=== PATIENT | male | born 1945 | race Caucasian/White ===

== ENCOUNTER → 2016-07-01 | Outpatient (CLI) | payer MEDICARE ==
[~2016-07-01] MED LIST: ALBUTEROL0.09 MG/A2 IH; AMLODIPINE BES2.5 MG PO; ANTIBIOTIC PO; ASPIR-TRIN325 MG PO; ASPIRIN ADULT L81 M1 PO; ASPIRIN81 M1 PO; CIPRO250 MG PO; DALI500T PO; DARVOCET N 1001 TAB PO; DAYPRO600 M1 PO; DILTIAZEM30 MG PO; DULE1ARO1 INH; DUONEB 3 MG/3 ML3 M1 INH; FLEXERIL10 MG PO; LOMOTIL 0.025 M1 TA1 PO; MILLIPRED5 MG PO; MUCINEX600 MG PO; NEBULIZER; NITROGLYCER0.1 MG/H1 TD; PERCOCET 325 MG1 TA2 PO; PERCOCET 325 MG1 TA5 PO; PRED-PAK 455 MG PO; PREDNICOT20 MG PO; PREDNISONE10 MG PO; PREDNISONE20 M1 PO; PREDNISONE5 MG PO; PRILOSEC20 M2 PO; PRINIVIL5 MG PO; ROBAXIN750 MG PO; SIMVASTATIN20 MG PO; TESSALON PERLE100 MG PO; ULTRAM50 MG PO; VENTOLIN 02.5 MG/3 M INH; VIBRAMYCIN100 MG PO; VICODIN ES 7501 TA1 PO; VICODIN ES 7501 TAB PO; XANAX0.5 MG PO; ZANTAC 150150 MG PO; ZOCOR20 MG PO; ZOLOFT50 MG PO; [UNRECOGNIZED DRUG - OTHER]; [UNRECOGNIZED DRUG - REMARK]; [UNRECOGNIZED DRUG - REMARK]
[2016-07-01 11:17] LABS: PTH INTACT 46.8 pg/mL (14.0-72.0); VITAMIN D, 25-HYDROXY 74.7 ng/mL (30-100)
== END | disposition home or self-care (01) ==
LOC: LAB 10:01
PROVIDERS: Internal Medicine
DX: Z13.1 Encounter for screening for diabetes mellitus (principal); Z13.220 Encounter for screening for lipoid disorders; Z00.00 Encounter for general adult medical examination without abnormal findings; Z13.21 Encounter for screening for nutritional disorder; E55.9 Vitamin D deficiency, unspecified

== ENCOUNTER 2016-08-04 16:25 | Emergency (ER) | payer MEDICARE ==
[~2016-08-04] VITALS: Ht 170.1 cm; Wt 52.2 kg
[2016-08-04] MEDS ORDERED: CYMBALTA20 M1 PO (16:45)
[2016-08-04 17:48] LABS: BASO # 0.1 10*3/uL (0.0-0.1); EOS # 0.3 10*3/uL (0.0-0.4); HEMATOCRIT 41.4 % (42.0-52.0); HEMOGLOBIN 14.1 g/dl (14.0-18.0); IG # 0.1 10*3/uL (0.0-0.1); LYMPH # 1.1 10*3/uL (1.3-4.4); LYMPH % 11.8 % (27.0-41.0); MEAN CELL VOLUME 95.4 fl (80.0-94.0); MEAN CORPUSCULAR HGB 32.5 pg (27.0-31.0); MEAN CORPUSCULAR HGB CONC 34.1 g/dl (33.0-37.0); MEAN PLATELET VOLUME 9.5 fl (9.6-12.3); MONO # 0.7 10*3/uL (0.1-1.0); MONO % 7.8 % (3.0-9.0); NEUT # 6.8 10*3/uL (2.3-7.9); NEUT % 75.5 % (47.0-73.0); PLATELET COUNT AUTOMATED 319 10*3/uL (130-400); RED BLOOD COUNT 4.34 10*6/uL (4.50-5.90); RED CELL DISTRI WIDTH 13.3 % (0-14.5)
[2016-08-04 17:56] LABS: PROTHROMBIN TIME 10.2 SECONDS (9.0-12.4)
[2016-08-04 18:03] LABS: ALKALINE PHOSPHATASE 85 U/L (45-117); BILIRUBIN, TOTAL 0.3 mg/dl (0.2-1.0); BUN 14 mg/dl (7-24); CARBON DIOXIDE 29 mmol/L (21-32); CHLORIDE 103 mmol/L (98-107); EST GLOM FILT AFRICAN AMERICAN > 60 ml/min; GLUCOSE 101 mg/dL (65-99); POTASSIUM 4.1 mmol/L (3.5-5.1); SGOT/AST 16 IU/L (3-35); SGPT/ALT 23 U/L (12-78); SODIUM 140 mmol/L (136-145); TOTAL PROTEIN 7.3 gm/dL (6.4-8.2)
[2016-08-04 18:12] LABS: CKMB 0.9 ng/ml (0.5-3.6); CPK 26 U/L (39-308); LDH 102 U/L (87-241); MAGNESIUM 2.2 mg/dL (1.5-2.1)
[2016-08-04 18:14] LABS: TROPONIN I < 0.015 ng/ml (<0.045)
[2016-08-04 21:52] LABS: BILIRUBIN NEGATIVE (NEGATIVE); BLOOD NEGATIVE (NEGATIVE); CLARITY SL CLOUDY (CLEAR); COLOR YELLOW (YELLOW); GLUCOSE NEGATIVE (NEGATIVE); KETONE NEGATIVE (NEGATIVE); LEUKO ESTERASE NEGATIVE (NEGATIVE); NITRITE POSITIVE (NEGATIVE); PROTEIN NEGATIVE (NEGATIVE); UROBILINOGEN 0.2 E.U./dl (0.2-1.0)
[2016-08-04 22:04] LABS: BACTERIA 3+; RBC 0-2 rbc/hpf (0-2); URINE REFLEX COMMENT YES (NO); WBC 0-2 wbc/hpf (0-5)
== END 2016-08-04 22:15 | disposition short-term general hospital (02) ==
LOC: ED 16:25
PROVIDERS: Physician Assistant
DX: I71.4 Abdominal aortic aneurysm, without rupture (principal); J18.1 Lobar pneumonia, unspecified organism; F17.200 Nicotine dependence, unspecified, uncomplicated; Z98.84 Bariatric surgery status; Z79.82 Long term (current) use of aspirin; Z79.899 Other long term (current) drug therapy; Z91.018 Allergy to other foods; Z99.81 Dependence on supplemental oxygen

== ENCOUNTER → 2016-09-16 | Outpatient (CLI) | payer MEDICARE ==
[~2016-09-16] MED LIST changes: +CYMBALTA20 M1 PO; +DILTIAZEM HCL30 MG PO; +PROTONIX40 MG PO
== END | disposition home or self-care (01) ==
LOC: CT 02:25
DX: J43.8 Other emphysema (principal); I71.2 Thoracic aortic aneurysm, without rupture; J84.10 Pulmonary fibrosis, unspecified; R91.1 Solitary pulmonary nodule; Z95.1 Presence of aortocoronary bypass graft

== ENCOUNTER 2016-09-17 13:12 | Inpatient (IN) | payer MEDICARE ==
[~2016-09-17] VITALS: Ht 170.1 cm; Wt 46.5 kg
--- NOTE | ~2016-09-17 | PR ---
[place], [place] PROGRESS NOTE [id number] UNIT #: [id number] ROOM: 522 DOCTOR: RENE COYNE MD,MACY BIRTHDATE: [birth year] DOS: 09/20/2016 SUBJECTIVE: He has been noted comfortable at this time, resting on his bed without distress. Denies symptoms of chest or any abdominal pain, coughing and the other symptoms. The patient has been improving progressively. There were no symptoms of chest pain or any abdominal pain. OBJECTIVE: VITAL SIGNS: For the patient which has been recorded showed the temperature noted as normal, respiratory rate 18, heart rate 74, blood pressure 98/56. Pulse oxygen saturation noted on 3 liters cannula was 100% saturation. HEENT: Showed no acute change. NECK: Supple. CARDIOVASCULAR: S1, S2 is audible. LUNGS: The patient was noted without any wheezing or crackles at the present time. ABDOMEN: Soft and nontender. IMPRESSION: 1. Right lower lobe spiculated pulmonary nodule. Possible consideration malignancy. 2. Resolving acute exacerbation of chronic obstructive pulmonary disease progressively at this time. PLAN OF TREATMENT: No changes in the plan of management at this time. Continue the patient on current therapy as previously. Usual care, other supportive plan of management and treatments. Bronchodilators. MACY LÓPEZ MD CM:PNTRANS [id number] MACY COYNE MD 09/20/162208 interface
--- NOTE | ~2016-09-17 | PR ---
[place], [place] PROGRESS NOTE NAME: RENE CHAVARRIA UNIT #: [id number] ROOM: 522 DOCTOR: CONY LÓPEZ MD BIRTHDATE: [birth year] DOS: SUBJECTIVE: The patient is doing fine. He has severe hard of hearing, since difficult to communicate, but I did try to explain to the patient that a PET scan has been scheduled by the office as an outpatient next week. OBJECTIVE: VITAL SIGNS: Graphic trend shows pressure of 113/60, pulse of 62, respirations 18, temperature 98.1. LUNGS: Clear. HEART: Regular. ABDOMEN: Obese, soft, nontender. EXTREMITIES: Without any edema. ASSESSMENT AND PLAN: 1. Chronic obstructive pulmonary disease with acute exacerbation, improving. 2. Right pulmonary nodule, spiculated. PET scan has been scheduled as an outpatient. 3. Left lower lobe pneumonia, which is also resolving clinically. Repeat chest x-ray will be ordered and the plan is to discharge him to home. CONY LÓPEZ MD CM:PNTRANS [phone] CONY LÓPEZ MD 09/21/16 1711 interface
--- NOTE | ~2016-09-17 | PR ---
[place], [place] PROGRESS NOTE NAME: [id number] UNIT #: [id number] ROOM: 522 DOCTOR: RENE COYNE MD,MACY BIRTHDATE: [birth year] DOS: 09/21/2016 PULMONARY FOLLOWUP SUBJECTIVE: He has been noted comfortable at this time without any acute distress. Denies symptoms of chest pain. Denies any sputum expectoration. OBJECTIVE: VITAL SIGNS: For the patient, which has been recorded showed the temperature noted normal, respiratory rate of 20, heart rate of 72, blood pressure 121/55. HEENT: Showed no new change. NECK: Supple. CARDIOVASCULAR: S1, S2 audible. LUNGS: Noted without any wheezing or crackles at the present time. ABDOMEN: Soft, nontender. IMPRESSION: 1. The patient with nodule in the right lung that has been known recently. The patient requires further assessment. 2. Improving overall respiratory status, the patient's current medical management. 3. Past history of nicotine abuse. PLAN OF TREATMENT: Discharge planning. The patient with oral medications prior to discharge. Continuation in the meantime current plan of management. The patient without any changes. Usual care. Supportive plan of management and therapy. MACY LÓPEZ MD CM:PNTRANS [id number] MACY COYNE MD 09/21/16 1322 interface
--- NOTE | ~2016-09-17 | CON ---
[place], [place] REPORT OF CONSULTATION NAME: RENE CHAVARRIA [facility] #: [id number] UNIT #: [id number] ROOM: 522 DOCTOR: MACY WHITE MD BIRTHDATE: [birth year] DOS: 09/18/2016 PULMONARY CONSULTATION, EVALUATION AND MANAGEMENT CONSULTATION REQUESTED BY: Dr. Shoshana Chaney. REASON FOR CONSULTATION: To assess the patient for pulmonary nodule. HISTORY OF PRESENT ILLNESS: The patient is not a quite good historian. All the history was essentially reviewed for the patient, documentation, history and physical examination and the nursing note which was done on this admission. HISTORY OF PRESENT ILLNESS: A 71-year-old white male who has been known to Dr. Shoshana Chaney, described had admission in [facility] in 08/2016 for assessment of GI bleeding and also noted possibility of lung mass. The patient has been treated with antibiotics and CT scan of the chest to be repeated. He came in to the Emergency Room as the patient noted symptoms of increased shortness of breath, which has been occurring progressively. He was seen by the visiting nursing staff at home. He has been noted with coughing, which was described to be light by the patient. He does have sputum expectoration. Denies any wheezing or chest pain. The patient was noted with tachycardia as well with heart rate 135 beats per minute. He has been admitted to the hospital for further medical management. REVIEW OF SYSTEMS: CONSTITUTIONAL: Review of systems very limited for this patient, unable to exactly elicit the review of systems; however, the patient denies any symptoms of weight loss, complaining of fatigue. Denies fever or chills. EYES: Denies any blurry vision, eye discharge or pain. ENT: Denies any sore throat, hoarseness, or otalgia. GASTROINTESTINAL: Denies any symptoms of abdominal pain, nausea, vomiting. CARDIOVASCULAR: Denies any palpitation, edema of the lower extremities. GENITOURINARY: Denies any dysuria, suprapubic pain, hematuria. MUSCULOSKELETAL: Denies any skin lesions or rashes. Reported symptoms of pain in the neck from chronic degenerative arthritis. Denies any symptoms of syncopal episodes or seizures. PAST MEDICAL HISTORY: 1. Noted with previous admission for pneumonia; details were unknown at [facility]. 2. History of past GI bleeding. 3. Severe COPD, chronic nicotine dependence. 4. Chronic pain, degenerative arthritis and intervertebral disk disease of the spine. 5. Anxiety disorder. 6. Coronary artery disease. 7. History of chronic hypoxic respiratory failure, use of oxygen supplementation 3 liters nasal cannula. 8. History of essential hypertension, coronary artery disease. SURGICAL HISTORY: [place], [place] REPORT OF CONSULTATION NAME: RENE CHAVARRIA UNIT #: [id number] ROOM: 522 DOCTOR: MACY WHITE MD BIRTHDATE: [birth year] 1. Reported as coronary artery bypass grafting. 2. Surgery of the lower back as well and the neck as per patient. 3. Abdominal aortic aneurysm repair. SOCIAL HISTORY: The patient stated that he is , has 4 children. Denies any history of alcohol or any illicit drug use. Tobacco use noted longstanding up to 2 packs of cigarettes per day, started at a younger age. Currently smoking about a pack or less of cigarettes per day. FAMILY HISTORY: Not remembered by the patient. CURRENT MEDICATIONS ADMINISTERED: Noted use of Cymbalta, Daliresp, sertraline, aspirin, simvastatin, Cardizem, Protonix, levalbuterol, doxycycline, Zosyn, Xanax, and other p.r.n. medication administration. DRUG ALLERGIES: Noted with no known drug allergies. PHYSICAL EXAMINATION: GENERAL: A 71-year-old white male noted without any distress, noted somewhat partial hearing loss. Height of 5 feet 7 inches, weight of 102 pounds, BMI is only 16. VITAL SIGNS: Normal temperature, respiratory rate 20-19, heart rate 54-109, blood pressure of ____. Pulse oxygen saturation on 3 L nasal cannula 97% saturation recorded. HEENT: Head was atraumatic. Eyes nonicteric. NECK: Supple. CARDIOVASCULAR SYSTEM: S1, S2 audible. LUNGS: Noted with general reduction in breath sounds. There are no crackles. ABDOMEN: Soft, nontender, flat. EXTREMITIES: No edema, clubbing, cyanosis. CENTRAL NERVOUS SYSTEM: No focal deficits were elicited. Inability to complete remaining central nervous system exam. SKIN: Showed no lesions or rashes. MUSCULOSKELETAL: No obvious deformities. LABORATORY DATA: BMP that was done yesterday was noted essentially normal. Troponin was yesterday noted normal. CBC yesterday, WBC count was normal. Hemoglobin and hematocrit were normal. Platelet count was normal. Chest x-ray of the patient that was done on 09/17/2016 shows severe COPD changes with increased interstitial markings in lower lungs. CT scan of the chest that was done as an outpatient on 09/16/2016 was noted with findings of 2.8 cm peripheral nodular density in posterior subsegment of the right lower lobe. Diffuse emphysema changes noted with findings of scattered interstitial fibrosis with possibly superimposed acute pneumonia cannot be excluded in the lungs bilaterally. IMPRESSION: 1. The patient has been currently admitted to the hospital with suspected acute pneumonia, which has been treated previously as well at [facility] in August 2016 with possible recurrence. [place], [place] REPORT OF CONSULTATION NAME: RENE CHAVARRIA UNIT #: [id number] ROOM: 522 DOCTOR: MACY WHITE MD BIRTHDATE: [birth year] 2. The patient with acute exacerbation of chronic obstructive pulmonary disease was also considered, that was early at this time. 3. History of chronic nicotine dependence. 4. Low body mass index was noted as well. PLAN OF TREATMENT: Continue bronchodilator for medical management of acute exacerbation of COPD. At this time, steroids would not be needed because of absence of significant wheezing. Continue current antibiotics, Zosyn and doxycycline. Monitor sputum culture. The nodule which has been noted in the right lower lobe, which is concerning for malignancy because of spiculated appearance. We would further assess with PET scan and a biopsy should be considered for further assessment for potential malignancy in the right lower lobe. Abstinence from tobacco use was encouraged. Ordered nicotine replacement patches to overcome the nicotine withdrawal. Supportive therapy, plan of management, other care. Further treatment changes would be done based on the progression of the illness. Thanks for allowing me to participate in the care of this patient. MACY LÓPEZ MD CM:CONSTR:REPORT OF CONSULTATION 1137 09/19/16 0600 interface
--- NOTE | ~2016-09-17 | PR ---
[place], [place] PROGRESS NOTE NAME: RENE CHAVARRIA UNIT #: [id number] ROOM: 522 DOCTOR: MACY WHITE MD BIRTHDATE: [birth year] DOS: 09/19/2016 PULMONARY FOLLOWUP SUBJECTIVE: He has been noted with mild cough at this time. Shortness of breath are noted decreased. There were no symptoms of chest pain or any abdominal pain. Denies symptoms of diarrhea. OBJECTIVE: VITAL SIGNS: For the patient, which have been recorded show normal temperature, respiratory rate 18, heart rate 98, blood pressure 103/75. Pulse oxygen saturation of the patient recorded as 97% on 3 liters nasal canula. HEENT: Examination shows no acute change. NECK: Supple. CARDIOVASCULAR: S1, S2 audible. LUNGS: Yuqj-lh-oelomlno decreased breath sounds noted in the lungs bilaterally. No crackles or wheezing heard. ABDOMEN: Soft, nontender. LABORATORY DATA: BMP of the patient on 09/19/2016, glucose 106, remaining BMP was completely normal. Blood culture from showed no bacterial growth as well. Final culture results were pending. BMP of the patient noted as normal. CBC: WBC count 13.9, hemoglobin 13.3, hematocrit 40.3 with a platelet count of 266,000. IMPRESSION: 1. The patient with acute exacerbation of chronic obstructive pulmonary disease, acute tracheobronchitis. 2. Pulmonary nodule for the patient was noted in the right lung. The patient would require further assessment to rule out malignancy. PLAN OF TREATMENT: Continue current plan of management. The patient is doing very well with current treatment. Supportive care. Other therapy, plan of management. [place], [place] PROGRESS NOTE NAME: RENE CHAVARRIA UNIT #: [id number] ROOM: 522 DOCTOR: MACY WHITE MD BIRTHDATE: [birth year] MACY LÓPEZ MD CM:PNTRANS [id number] MACY COYNE MD 09/20/16 0107 interface
--- NOTE | ~2016-09-17 | WRIGHTHP ---
[place], [place] PATIENT HISTORY AND PHYSICAL EXAM NAME: RENE CHAVARRIA [facility] #: [id number] UNIT #: [id number] ROOM: 522 DOCTOR: CONY LÓPEZ MD BIRTHDATE: [birth year] DOS: 09/17/2016 HISTORY OF PRESENT ILLNESS: This patient is 71 years old, very well known to us. He was admitted August 2016 at [facility] following GI bleed and an evaluation showed that there was possibility of lung mass. Thus, he was treated with antibiotics and was advised to have a repeat CAT scan. This was performed on September 16. It showed reappearance of a small pneumonia on the left side. The patient was getting breathing treatments at home and on September 17, the visiting nurses noted that he was quite short of breath and was tachycardic with a heart rate of about 135, so I advised the patient be sent out to the Emergency Room where he was evaluated and was admitted because of the new pneumonia on the left lower lobe, so the patient this morning complains of minimal shortness of breath, but much improved since yesterday, does not have any palpitations or chest pain, very difficult to communicate with the patient because he has difficulty hearing and there is nobody else accompanying him this morning. PAST MEDICAL HISTORY: Significant for again as recorded earlier recent hospitalization for possible pneumonia in August 04 at [facility]; 1. Colonoscopy with polypectomy. 2. Diverticulosis. 3. Severe COPD with continued nicotine abuse. 4. Chronic low back pain. 5. Generalized anxiety disorder. 6. Coronary artery disease, status post CABG. MEDICATIONS: Xanax 0.5 q.i.d., aspirin 81, diltiazem 30 b.i.d., duloxetine 20 daily, Percocet 5 q.i.d., Protonix 40 b.i.d., Daliresp 500 mcg daily, Zoloft 50 daily and simvastatin 20 daily. SOCIAL HISTORY: Smoker of about 1 to 1-1/2 packs of cigarettes daily for the last 60 years. Denies using any alcohol. PHYSICAL EXAMINATION: GENERAL: He is awake, alert and oriented and again severe hard of hearing. VITAL SIGNS: Graphic trend shows a pressure of 92/55, pulse of 90, respirations 20 and temperature 97.3, chronically hypotensive as even as an outpatient. HEENT: Unremarkable. LUNGS: Diminished breath sounds. HEART: Regular. ABDOMEN: Soft. EXTREMITIES: Without any edema. ASSESSMENT AND PLAN: 1. A CT done on the September 16, shows a left lower lobe pneumonia as well as chronic right lower lobe pneumonia and a spiculated mass in the right lower lung field, which will need to be evaluated with a PET scan as an outpatient, which has already been scheduled by the office. We will ask Dr. Garcia to see him since he may benefit from a bronchoscopy. 2. Coronary artery disease with history of coronary artery bypass grafting without any complaints of chest pain. His tachycardia most likely was from the [place], [place] PATIENT HISTORY AND PHYSICAL EXAM NAME: [facility]: [id number] UNIT #: [id number] ROOM: 522 DOCTOR: CONY LÓPEZ MD BIRTHDATE: [birth year] breathing treatments. He is currently on Xopenex. 3. Generalized anxiety disorder under control with medications. CONY LÓPEZ MD CM:HISPHYS:PATIENT HISTORY AND PHYSICAL EXAMINATION [phone] CONY LÓPEZ MD 09/18/16 1110 interface
--- NOTE | ~2016-09-17 | DS ---
[place], [place] DISCHARGE SUMMARY NAME: RENE CHAVARRIA UNIT #: [id number] ROOM: 522 DOCTOR: CONY LÓPEZ MD BIRTHDATE: [birth year] DOS: 09/22/2016 ADMITTING DIAGNOSES: 1. Suspected mass right lower lobe for PET scan as an outpatient tomorrow at [facility]. 2. Acute tracheobronchitis. 3. Tachycardia multifocal from the underlying chronic obstructive pulmonary disease. 4. Protein-calorie malnutrition. 5. Coronary artery disease, status post coronary artery bypass graft. 6. Tobacco dependence. 7. Left lower lobe pneumonia MEDICATIONS: Same as on admission. In addition, tapering dose of prednisone and Ceftin 250 b.i.d. was given for 7 days. HOSPITAL COURSE: The patient is very well known to us. He was admitted to the hospital with left lower lobe pneumonia, which was seen on a chest x-ray. After admission, the patient was placed on steroids, antibiotics, breathing treatments. The patient is improved and is not having any new problems. A tachycardia, which was noted before admission, has improved. He does not have any bronchospasm. He unfortunately continues to smoke rather heavily. Recent CT scans did show the spiculated mass which is actually smaller in size, but still present. This will need to be further evaluated in the office. I have already scheduled the patient to have the PET scan tomorrow at [facility]. Instructions and order was given to the patient. CONY LÓPEZ MD CM:JEM [id number] CONY LÓPEZ MD 09/22/16 1107 interface
--- NOTE | ~2016-09-17 | PR ---
[place], [place] PROGRESS NOTE NAME: RENE CHAVARRIA [facility] #: [id number] UNIT #: [id number] ROOM: 522 DOCTOR: SUNITA DUARTE MD BIRTHDATE: [birth year] DOS: 09/20/2016 SUBJECTIVE: The patient still with some diarrhea. Stool negative for C. diff. OBJECTIVE: VITAL SIGNS: Blood pressure 102/64, heart rate of 85 beats per minute, breathing 18 times per minute, temperature 98.6 degrees Fahrenheit. GENERAL APPEARANCE: The patient is alert and oriented x 3, in no visible distress. HEENT AND NECK: Exam within normal limits. CARDIOVASCULAR SYSTEM: Heart rate is regular in rate and rhythm. S1 and S2 normally audible. LUNGS: Clear to auscultation. ABDOMEN: Soft, nontender. No obvious organomegaly. Bowel sounds are present. EXTREMITIES: Without significant cyanosis or edema. IMPRESSION: 1. Left lower lobe pneumonia, chronic right lower lobe infiltrate and spiculated mass in the right lower lung for which strategic intelligence officer, Dr. aGrcia will be following him up with a PET scan as an outpatient. For now, the patient is on antibiotics, bronchodilators and oxygen, and is improving clinically. 2. Coronary artery disease of huslia vessels and coronary artery bypass grafts without any chest pains. 3. Chronic diarrhea. Stool for C. diff negative so far. 4. Generalized anxiety disorder treated with Xanax as needed. SUNITA DUARTE MD CM:PNTRANS 1655 SUNITA DUARTE MD 09/20/16 2303 interface
--- NOTE | ~2016-09-17 | PR ---
[place], [place] PROGRESS NOTE [id number] UNIT #: [id number] ROOM: 522 DOCTOR: GERALD ADAIR,SUNITA Alberto BIRTHDATE: [birth year] DOS: 09/19/2016 SUBJECTIVE: The patient says his breathing continues to improve, he is wearing oxygen. PHYSICAL EXAMINATION: VITAL SIGNS: Blood pressure 103/75, heart rate of 98 beats per minute, breathing 18 times per minute, temperature 98.4 degrees Fahrenheit. GENERAL APPEARANCE: Exam except for generalized weakness and the patient is wearing oxygen. LUNGS: With decreased breath sounds all over. IMPRESSION: 1. The patient with left lower lobe pneumonia with chronic right lower lobe infiltrate and spiculated mass in the right lower lung for which Dr. Garcia will work him up with a PET scan as an outpatient. So far, the patient is being treated with antibiotics, bronchodilators and oxygen and improving. 2. Coronary artery disease of the jena vessel with coronary artery bypass grafts without any angina symptoms or chest pains. 3. Generalized anxiety disorder, controlled with treatment. 4. Some diarrhea, which is chronic ____ check stool for Clostridium difficile toxin. 3. Generalized anxiety disorder for which the patient takes Xanax as needed. SUNITA DUARTE MD CM:PNTRANS [phone] SUNITA DUARTE MD 09/20/16 0113 interface
--- NOTE | ~2016-09-17 | PR ---
[place], [place] PROGRESS NOTE NAME: RENE CHAVARRIA UNIT #: [id number] ROOM: 522 DOCTOR: CONY LÓPEZ MD BIRTHDATE: [birth year] DOS: 09/22/2016 SUBJECTIVE: The patient is doing fine without any complaints. Denies any chest pains, palpitations or shortness of breath. PHYSICAL EXAMINATION: GENERAL: He is awake and alert and oriented. LUNGS: Diminished breath sounds, clear. HEART: Regular. ABDOMEN: Soft. EXTREMITIES: Without any edema. ASSESSMENT AND PLAN: 1. Acute exacerbation of chronic obstructive pulmonary disease, stable and improved. 2. Acute tracheobronchitis. His cough and bronchospasm is much better. Heart rate is under control. Plan is to discharge him to home. He has been informed about a PET scan that is to be done at [facility] tomorrow. The patient was given instructions as well as the order. CONY LÓPEZ MD CM:PNTRANS [id number] CONY LÓPEZ MD 09/22/16 1103 interface
[~2016-09-17 13:12] MED LIST changes: -DILTIAZEM HCL30 MG PO; -PROTONIX40 MG PO
[2016-09-17 13:24] VITALS: BP 104/72
[2016-09-17] MEDS ORDERED: DILTIAZEM HCL30 MG PO (13:25)
[2016-09-17 13:39] LABS: BASO # 0.1 10*3/uL (0.0-0.1); BASO % 1.1 % (0.0-1.0); EOS # 0.4 10*3/uL (0.0-0.4); EOS % 5.2 % (1.0-4.0); HEMATOCRIT 45.4 % (42.0-52.0); HEMOGLOBIN 15.2 g/dl (14.0-18.0); LYMPH # 1.1 10*3/uL (1.3-4.4); LYMPH % 13.5 % (27.0-41.0); MEAN CELL VOLUME 95.4 fl (80.0-94.0); MEAN CORPUSCULAR HGB 31.9 pg (27.0-31.0); MEAN CORPUSCULAR HGB CONC 33.5 g/dl (33.0-37.0); MEAN PLATELET VOLUME 9.6 fl (9.6-12.3); MONO # 0.7 10*3/uL (0.1-1.0); MONO % 8.7 % (3.0-9.0); NEUT # 5.9 10*3/uL (2.3-7.9); PLATELET COUNT AUTOMATED 263 10*3/uL (130-400); RED BLOOD COUNT 4.76 10*6/uL (4.50-5.90); RED CELL DISTRI WIDTH 13.7 % (0-14.5); WHITE BLOOD COUNT 8.3 10*3/uL (4.8-10.8)
[2016-09-17 13:57] LABS: BUN 10 mg/dl (7-24); CARBON DIOXIDE 29 mmol/L (21-32); CHLORIDE 103 mmol/L (98-107); EST GLOM FILT AFRICAN AMERICAN > 60 ml/min; GLUCOSE 109 mg/dL (65-99); MAGNESIUM 2.2 mg/dL (1.5-2.1); POTASSIUM 4.3 mmol/L (3.5-5.1); SODIUM 139 mmol/L (136-145)
[2016-09-17 13:59] LABS: TROPONIN I < 0.015 ng/ml (<0.045)
[2016-09-17 14:30] VITALS: BP 99/72
[2016-09-17 15:37] VITALS: BP 103/73
[2016-09-17 16:00] VITALS: BP 101/69
[2016-09-17] MEDS ORDERED: PROTONIX40 MG PO (16:28)
[2016-09-17 20:00] VITALS: BP 98/64
[2016-09-17 20:33] VITALS: BP 90/76
[2016-09-18] VITALS: BP 100/54
[2016-09-18 08:00] VITALS: BP 92/55
[2016-09-18 12:00] VITALS: BP 103/71
[2016-09-18 16:00] VITALS: BP 91/52
[2016-09-18 21:18] VITALS: BP 126/77
[2016-09-19] VITALS: BP 90/54
[2016-09-19 07:16] LABS: BASO # 0.1 10*3/uL (0.0-0.1); BASO % 0.6 % (0.0-1.0); EOS # 0.4 10*3/uL (0.0-0.4); EOS % 2.7 % (1.0-4.0); HEMATOCRIT 40.3 % (42.0-52.0); HEMOGLOBIN 13.3 g/dl (14.0-18.0); IG # 0.1 10*3/uL (0.0-0.1); LYMPH # 1.3 10*3/uL (1.3-4.4); LYMPH % 9.1 % (27.0-41.0); MEAN CELL VOLUME 97.1 fl (80.0-94.0); MONO # 1.2 10*3/uL (0.1-1.0); MONO % 8.5 % (3.0-9.0); NEUT # 10.9 10*3/uL (2.3-7.9); NEUT % 78.6 % (47.0-73.0); PLATELET COUNT AUTOMATED 266 10*3/uL (130-400); RED BLOOD COUNT 4.15 10*6/uL (4.50-5.90); RED CELL DISTRI WIDTH 14.1 % (0-14.5); WHITE BLOOD COUNT 13.9 10*3/uL (4.8-10.8)
[2016-09-19 07:45] LABS: BUN 8 mg/dl (7-24); CARBON DIOXIDE 27 mmol/L (21-32); CHLORIDE 106 mmol/L (98-107); EST GLOM FILT AFRICAN AMERICAN > 60 ml/min; GLUCOSE 106 mg/dL (65-99); POTASSIUM 3.8 mmol/L (3.5-5.1); SODIUM 144 mmol/L (136-145)
[2016-09-19 08:00] VITALS: BP 99/66
[2016-09-19 12:00] VITALS: BP 103/75
[2016-09-19 16:00] VITALS: BP 107/69
[2016-09-19 20:00] VITALS: BP 99/51
[2016-09-20] VITALS: BP 97/85
[2016-09-20 08:00] VITALS: BP 98/56
[2016-09-20 12:00] VITALS: BP 102/64
[2016-09-20 16:00] VITALS: BP 96/65
[2016-09-20 20:00] VITALS: BP 97/63
[2016-09-21] VITALS: BP 113/60
[2016-09-21 08:00] VITALS: BP 121/55
[2016-09-21 12:00] VITALS: BP 95/83
[2016-09-21 16:00] VITALS: BP 100/60
[2016-09-21 20:00] VITALS: BP 107/70
[2016-09-22] VITALS: BP 107/67
[2016-09-22 06:12] LABS: BASO # 0.1 10*3/uL (0.0-0.1); BASO % 1.1 % (0.0-1.0); EOS # 0.6 10*3/uL (0.0-0.4); EOS % 6.4 % (1.0-4.0); HEMATOCRIT 39.2 % (42.0-52.0); HEMOGLOBIN 13.3 g/dl (14.0-18.0); LYMPH # 1.6 10*3/uL (1.3-4.4); LYMPH % 16.9 % (27.0-41.0); MEAN CELL VOLUME 95.6 fl (80.0-94.0); MEAN CORPUSCULAR HGB 32.4 pg (27.0-31.0); MEAN CORPUSCULAR HGB CONC 33.9 g/dl (33.0-37.0); MEAN PLATELET VOLUME 9.6 fl (9.6-12.3); MONO # 0.7 10*3/uL (0.1-1.0); MONO % 7.7 % (3.0-9.0); NEUT # 6.3 10*3/uL (2.3-7.9); NEUT % 67.7 % (47.0-73.0); PLATELET COUNT AUTOMATED 270 10*3/uL (130-400); RED CELL DISTRI WIDTH 13.5 % (0-14.5); WHITE BLOOD COUNT 9.4 10*3/uL (4.8-10.8)
[2016-09-22 06:48] LABS: CHLORIDE 108 mmol/L (98-107); POTASSIUM 3.8 mmol/L (3.5-5.1); SODIUM 145 mmol/L (136-145)
[2016-09-22 07:50] LABS: BUN 9 mg/dl (7-24); CARBON DIOXIDE 27 mmol/L (21-32); EST GLOM FILT AFRICAN AMERICAN > 60 ml/min; GLUCOSE 115 mg/dL (65-99)
[2016-09-22 08:00] VITALS: BP 95/50
== END 2016-09-22 08:40 | disposition home health service (06) | DRG 190 ==
LOC: ED 13:12 → 5E 15:05 → EDHOLD 15:05 → 5E 15:10
PROVIDERS: Emergency Medicine; Internal Medicine
DX: J44.0 Chronic obstructive pulmonary disease with (acute) lower respiratory infection (principal); J18.1 Lobar pneumonia, unspecified organism; J96.11 Chronic respiratory failure with hypoxia; E46 Unspecified protein-calorie malnutrition; Z99.81 Dependence on supplemental oxygen; Z68.1 Body mass index [BMI] 19.9 or less, adult; J44.1 Chronic obstructive pulmonary disease with (acute) exacerbation; I25.10 Atherosclerotic heart disease of native coronary artery without angina pectoris; F41.1 Generalized anxiety disorder; I71.4 Abdominal aortic aneurysm, without rupture; G89.29 Other chronic pain; M54.5 Low back pain; M47.9 Spondylosis, unspecified; K52.9 Noninfective gastroenteritis and colitis, unspecified; J20.9 Acute bronchitis, unspecified; F17.290 Nicotine dependence, other tobacco product, uncomplicated; R91.1 Solitary pulmonary nodule; Z91.018 Allergy to other foods; Z79.82 Long term (current) use of aspirin; Z79.899 Other long term (current) drug therapy; Z87.440 Personal history of urinary (tract) infections; Z95.1 Presence of aortocoronary bypass graft; Z88.5 Allergy status to narcotic agent

== ENCOUNTER 2016-09-28 22:00 | Emergency (ER) | payer MEDICARE ==
[~2016-09-28] VITALS: Ht 170.1 cm; Wt 59.0 kg
[~2016-09-28 22:00] MED LIST changes: +DILTIAZEM HCL30 MG PO; +PROTONIX40 MG PO
[2016-09-28 22:34] LABS: BASO # 0.1 10*3/uL (0.0-0.1); BASO % 0.8 % (0.0-1.0); EOS # 0.7 10*3/uL (0.0-0.4); EOS % 4.1 % (1.0-4.0); HEMATOCRIT 48.1 % (42.0-52.0); HEMOGLOBIN 15.9 g/dl (14.0-18.0); IG # 0.1 10*3/uL (0.0-0.1); LYMPH # 2.5 10*3/uL (1.3-4.4); LYMPH % 13.8 % (27.0-41.0); MEAN CELL VOLUME 98.6 fl (80.0-94.0); MEAN CORPUSCULAR HGB 32.6 pg (27.0-31.0); MEAN CORPUSCULAR HGB CONC 33.1 g/dl (33.0-37.0); MEAN PLATELET VOLUME 10.2 fl (9.6-12.3); MONO # 1.1 10*3/uL (0.1-1.0); MONO % 6.2 % (3.0-9.0); NEUT # 13.3 10*3/uL (2.3-7.9); NEUT % 74.4 % (47.0-73.0); PLATELET COUNT AUTOMATED 339 10*3/uL (130-400); RED BLOOD COUNT 4.88 10*6/uL (4.50-5.90); RED CELL DISTRI WIDTH 14.1 % (0-14.5); WHITE BLOOD COUNT 17.9 10*3/uL (4.8-10.8)
[2016-09-28 22:52] LABS: BUN 15 mg/dl (7-24); CARBON DIOXIDE 29 mmol/L (21-32); CHLORIDE 105 mmol/L (98-107); EST GLOM FILT AFRICAN AMERICAN > 60 ml/min; GLUCOSE 112 mg/dL (65-99); POTASSIUM 3.9 mmol/L (3.5-5.1); SODIUM 144 mmol/L (136-145)
[2016-09-28 22:53] LABS: TROPONIN I < 0.015 ng/ml (<0.045)
[2016-09-28 22:54] LABS: OXYHEMOGLOBIN 54.9 % (85.0-98.0); TOTAL HGB 15.2 G/DL (13.5-18.0)
[2016-09-28 22:56] LABS: ABG BASE EXCESS -0.9 mmol/L (-2.0-2.0); ABG CO2 CONTENT 26.3 mmol/L (23-27); ABG HCO3 24.9 mmol/l (22-26); ABG TEMPERATURE 97.9 F (98.0-99.0); ARTERIAL BLOOD GAS PH 7.345 (7.35-7.45)
== END 2016-09-29 00:32 | disposition short-term general hospital (02) ==
LOC: ED 22:00
PROVIDERS: Emergency Medicine Emergency Medical Services
DX: T20.20XA Burn of second degree of head, face, and neck, unspecified site, initial encounter (principal); J96.10 Chronic respiratory failure, unspecified whether with hypoxia or hypercapnia; J44.1 Chronic obstructive pulmonary disease with (acute) exacerbation; F17.210 Nicotine dependence, cigarettes, uncomplicated; Z79.82 Long term (current) use of aspirin; Z79.899 Other long term (current) drug therapy; Z91.018 Allergy to other foods; Z99.81 Dependence on supplemental oxygen; X08.8XXA Exposure to other specified smoke, fire and flames, initial encounter; Y93.G2 Activity, grilling and smoking food; Y92.009 Unspecified place in unspecified non-institutional (private) residence as the place of occurrence of the external cause; Y99.9 Unspecified external cause status

== ENCOUNTER 2017-08-18 13:08 | Inpatient (IN) | payer MEDICARE ==
[2017-08-18] VITALS (7 sets, daily range): BP systolic 102–120; BP diastolic 70–87
[~2017-08-18] VITALS: Ht 167.6 cm; Wt 42.4 kg
--- NOTE | ~2017-08-18 | WRIGHTHP ---
[place], [place] PATIENT HISTORY AND PHYSICAL EXAM NAME: RENE CHAVARRIA [facility] #: [id number] UNIT #: [id number] ROOM: [facility] DOCTOR: CONY LÓPEZ MD BIRTHDATE: [birth year] DOS: 08/18/2017 HISTORY OF PRESENT ILLNESS: This patient is very well known to us, 72-year-old, comes to the office for routine appointment. The patient complained and son state that he had multiple episodes of diarrhea, also was hypotensive with a blood pressure systolic in the 60s, so he was brought to the emergency room where he was evaluated and was found to be quite short of breath by the time he arrived at the emergency room. He denies having any fever, any chills, any chest pains or palpitations. It is very difficult to communicate with him because he is severe hard of hearing and does not have his hearing aid with him. PAST MEDICAL HISTORY: 1. End-stage COPD, oxygen dependent. 2. Generalized anxiety disorder. 3. Chronic low back pain. 4. Protein calorie malnutrition. 5. Right lower lobe mass which was ruled out as a malignancy and is mostly resolved now. 6. Coronary artery disease, status post CABG. 7. Moderate cigarette smoker. MEDICATIONS: He is on currently are Breo Ellipta 1 inhalation daily, DuoNeb q. 4, Flonase nasal spray, Xanax 0.5 q.i.d., amitriptyline 10 at bedtime, aspirin 81 daily, diltiazem 30 b.i.d., duloxetine 20 daily, Megace 40 b.i.d., Percocet 5 q.i.d. p.r.n., Daliresp 500 mcg daily, sulfasalazine 500 t.i.d., tamsulosin 0.4 daily, nitroglycerin 0.2 mg. SOCIAL HISTORY: Smokes about a half to 1 pack of cigarettes a day. Denies using any alcohol on exam. He lives at home with his . PHYSICAL EXAMINATION: GENERAL: He is awake and alert and oriented in moderate respiratory distress. VITAL SIGNS: Blood pressure is 110/48, pulse of 89, respirations 22, temperature 98.7. LUNGS: Diminished breath sounds, scattered wheezes. HEART: Regular. ABDOMEN: Soft, scaphoid. EXTREMITIES: Without any edema. LABORATORY DATA: Chest CT scan shows severe COPD, atelectasis in lung bases, previous right lower lobe opacity has almost resolved, 4.8 AAA with history of stent. ASSESSMENT AND PLAN: 1. Acute exacerbation of end-stage chronic obstructive pulmonary disease, IV steroids and antibiotics have been added. 2. Atelectasis, left lower lobe versus pneumonia. IV antibiotics have been added. Dr. Garcia has been consulted. 3. Protein-calorie malnutrition with hypotension. Blood pressures have improved. Social service has been consulted for possible placement to [place], [place] PATIENT HISTORY AND PHYSICAL EXAM NAME: DEONRENE Dietz UNIT #: [id number] ROOM: [facility] DOCTOR: CONY LÓPEZ MD BIRTHDATE: [birth year] rehabilitation. 4. Adult failure to thrive. CONY LÓPEZ MD CM:HISPHYS:PATIENT HISTORY AND PHYSICAL EXAMINATION 1 3 CONY LÓPEZ MD 08/19/17 0903 interface
--- NOTE | ~2017-08-18 | PR ---
[place], [place] PROGRESS NOTE NAME: RENE CHAVARRIA UNIT #: [id number] ROOM: [facility] DOCTOR: RENE COYNE MD,MACY BIRTHDATE: [birth year] DOS: 08/21/2017 PULMONARY PROGRESS NOTE SUBJECTIVE: He has been noted comfortable at this time, resting on the chair. His spouse and one of the son were present in the room with the patient this morning. He had not been noted any symptoms of acute chest pain. There was no hemoptysis. Oral intake for the patient was gradually improving, but still noted limited. There were symptoms of nausea, vomiting, diarrhea, hemoptysis reported. The patient denies symptoms of dizziness, headache, diplopia. Denies symptoms of dysuria, suprapubic pain or any acute joint pain. Remaining systems were reviewed. They were noted all negative. OBJECTIVE: VITAL SIGNS: For the patient this morning; normal temperature, respiratory rate 22, heart rate of 83, blood pressure 115/83. Intake of 3200 mL, output 1275 mL. Pulse oxygen saturation 3 L nasal cannula 94% saturation. HEENT: Head was atraumatic. Eyes nonicterus. NECK: Supple. CARDIOVASCULAR: S1, S2 is audible. LUNGS: The patient was noted without any crackles. Generally diminished breath sounds noted in the lungs bilaterally. ABDOMEN: Soft, nontender. EXTREMITIES: Without any acute edema. VISIBLE SKIN: No lesions or rashes. CENTRAL NERVOUS SYSTEM: General weakness and fatigue. No focal deficit. MUSCULOSKELETAL: Without any acute deformities. LABORATORY DATA: Blood culture, which was done for this patient was noted negative. Prealbumin level noted as 16 previously. IMPRESSION: 1. The patient who has been currently noted with gradual resolution of acute exacerbation of chronic obstructive pulmonary disease, history of chronic severe hypoxic respiratory failure and other medical illnesses. 2. The patient with decreased oral intake. 3. Suspected acute pneumonia. The patient was treated with the antibiotics. PLAN OF TREATMENT: Continuation of the bronchodilators, oxygen supplementation, nutritional support for this patient, other therapy, plan of management. Continue current dose of Solu-Medrol and the antibiotics. Usual care with other supportive plan of therapy with additional changes to be made based on progression of the illnesses. [place], [place] PROGRESS NOTE NAME: RENE CHAVARRIA UNIT #: [id number] ROOM: [facility] DOCTOR: MACY WHITE MD BIRTHDATE: [birth year] MACY LÓPEZ MD CM:PNTRANS [id number] MACY COYNE MD 08/22/17 0048 interface
--- NOTE | ~2017-08-18 | PR ---
[place], [place] PROGRESS NOTE NAME: [id number] UNIT #: [id number] ROOM: [facility] DOCTOR: RENE COYNE MD,MACY BIRTHDATE: [birth year] DOS: 08/20/2017 PULMONARY PROGRESS NOTE SUBJECTIVE: He has been noted comfortable at this time without any acute distress, resting on the chair. Noted awake and alert. Denies symptoms of chest pain or hemoptysis. Shortness of breath has been noted decreased. Mild tachycardia was noted, heart rate of 116 beats per minute. PHYSICAL EXAMINATION: VITAL SIGNS: The temperature noted normal, respiratory rate of 20, heart rate of 116, and blood pressure ____. The pulse oxygen saturation on 3 liters is 93% saturation recorded. HEENT: On examination, head was atraumatic. Eyes nonicterus. NECK: Supple. CARDIOVASCULAR: S1, S2 audible. LUNGS: Noted without any crackles. Moderate decreased breath sounds in the lungs were noted bilaterally. Scattered expiratory wheezing. ABDOMEN: Soft, nontender. Bowel sounds present. EXTREMITIES: Without any acute edema. IMPRESSION: The patient with an acute pneumonia in right lower lobe was noted with history of nicotine abuse, progressive cachexia, and chronic hypoxic respiratory failure. PLAN OF MANAGEMENT: No change in the plan of management. Improved the nutritional status, prealbumin noted as 16. Physical therapy and occupation therapy. The patient was also ordered the consultation for the long-term acute care facility. MACY LÓPEZ MD CM:PNTRANS [phone] MACY COYNE MD 08/21/17 0110 interface
--- NOTE | ~2017-08-18 | EKG ---
[place], [place] ELECTROCARDIOGRAM REPORT NAME: RENE CHAVARRIA UNIT #: [id number] ROOM: [facility] DOCTOR: RENE COYNE MD,MACY BIRTHDATE: [birth year] DOS: 08/18/2017 ELECTROCARDIOGRAM DATE AND TIME OF PROCEDURE: 08/18/2017 at 02:11 p.m. FINDINGS: Sinus tachycardia noted with heart rate of 114 beats per minute. Low voltage EKG for the patient is considered. MACY LÓPEZ MD CM:EKGRPT:ELECTROCARDIOGRAM REPORT [id number] MACY COYNE MD
--- NOTE | ~2017-08-18 | PR ---
[place], [place] PROGRESS NOTE NAME: RENE CHAVARRIA UNIT #: [id number] ROOM: [facility] DOCTOR: SUNITA DUARTE MD BIRTHDATE: [birth year] DOS: 08/20/2017 SUBJECTIVE: The patient with shortness of breath with some improvement. OBJECTIVE: VITAL SIGNS: Blood pressure 112/67, heart rate 107 beats per minute, breathing 38 times per minute, afebrile. GENERAL APPEARANCE: The patient is alert and oriented x 3, in no visible distress, except for generalized weakness. HEENT AND NECK: Exam within normal limits. CARDIOVASCULAR SYSTEM: Heart rate is regular in rate and rhythm. S1 and S2 normally audible. LUNGS: Decreased breath sounds all over. The patient is wearing oxygen. ABDOMEN: Soft, nontender. No obvious organomegaly. Bowel sounds are present. EXTREMITIES: Without significant cyanosis or edema. IMPRESSION: 1. End-stage centrilobular emphysema with acute over chronic respiratory failure. The patient is not a good candidate for going home or to a detention facility at this time because of his tachycardia and hypoxemia, barely maintaining 90% pulse ox and breathing 38 times per minute. The patient is still on the ICU. I did have a discussion about his code status with the patient and he said he will discuss it with his and then decide. I have put in a consult for LTAC facility because he needs higher level of care than detention facility at this time and hopefully the patient will be discharged there tomorrow. 2. Left lower lobe pneumonia, treated with IV antibiotics, which will be continued. 3. Mild protein calorie malnutrition. The patient is followed by Dietary. 4. Coronary artery disease of the [place] vessels, without chest pains. 5. Nicotine smoke dependence. The patient encouraged to stop and help was offered. 6. Generalized anxiety disorder, being followed closely and treated as appropriate. 7. Advanced adult failure to thrive and suboptimal long-term prognosis, especially because of his end-stage lung disease. [place], [place] PROGRESS NOTE NAME: RENE CHAVARRIA UNIT #: [id number] ROOM: [facility] DOCTOR: SUNITA DUARTE MD BIRTHDATE: [birth year] SUNITA DUARTE MD CM:IMANI [phone] SUNITA DUARTE MD 08/20/17 1846 interface
--- NOTE | ~2017-08-18 | CON ---
[place], [place] REPORT OF CONSULTATION NAME: RENE CHAVARRIA [facility] #: [id number] UNIT #: [id number] ROOM: [facility] DOCTOR: MACY WHITE MD BIRTHDATE: [birth year] DOS: 08/19/2017 PULMONARY CONSULTATION, EVALUATION AND MANAGEMENT CONSULTATION REQUESTED BY: Dr. Shoshana Chaney. REASON FOR CONSULTATION: For assessment of possibility of acute pneumonia versus atelectasis, noted on CT scan of the chest. HISTORY OF PRESENT ILLNESS: This 72-year-old white male, who had been sent to the Emergency Room from the office of Dr. Shoshana Chaney, as the patient noted with multiple episodes of diarrhea for further assessment. The patient later started complaining of symptoms of shortness of breath. He was assessed in the Emergency Room, admitted to the hospital for possibility of acute pneumonia and assessment of other medical illnesses. He has been admitted to Intensive Care Unit. He has been attempted with several arterial blood gases, which was noted successful. The patient refused to have further testing done after that. He has been currently noted sitting on his bed, this morning still complained of some shortness of breath. Does not have any symptoms of cough or wheezing. The communication is very limited because of his hard of hearing. He denies any symptoms of hemoptysis. REVIEW OF SYSTEMS: CONSTITUTIONAL: Fatigue and tiredness reported without symptoms of fever or chills. EYES: Denies any burning, redness, or tenderness. EARS, NOSE, AND THROAT SYMPTOMS: Denies sore throat, hoarseness, or otalgia. Chronic hearing loss. CARDIOVASCULAR: Denies anginal pain. GASTROINTESTINAL: Symptom of dysphagia, abnormal weight loss, hematemesis or melena reported. GENITOURINARY: Denies dysuria, suprapubic pain, or hematuria. MUSCULOSKELETAL: No acute deformities. SKIN: Noted without any lesions or rashes. CENTRAL NERVOUS SYSTEM: Denies dizziness, headache, diplopia, or syncopal episodes. Remaining systems reviewed. They were noted all negative. PAST MEDICAL HISTORY: 1. End-stage chronic obstructive pulmonary disease. 2. Chronic hypoxic respiratory failure, use of oxygen 3 liters cannula at home. 3. Degenerative arthritis. 4. Past history of gastrointestinal bleeding. 5. History of previous pneumonia. 6. Essential hypertension. 7. Coronary artery disease. 8. Generalized anxiety disorder. 9. Chronic hearing loss. PAST SURGICAL HISTORY: 1. Coronary artery bypass grafting. [place], [place] REPORT OF CONSULTATION NAME: RENE CHAVARRIA UNIT #: [id number] ROOM: [facility] DOCTOR: RENE COYNE MD,MACY BIRTHDATE: [birth year] 2. Lower back surgery, diskectomy. 3. Abdominal aortic aneurysm repair. SOCIAL HISTORY: The patient is , has 4 children , lived at home. Previously has been noted tobacco use, started at younger age 4-pack of cigarettes per day, not sure if he is smoking cigarettes actively at this time or not. FAMILY HISTORY: Unknown. MEDICATIONS: Current medication administration noted use of Flonase, nitropatch application to skin, Flomax, ____, aspirin, omeprazole, Cymbalta, Cardizem, amitriptyline, IV Solu-Medrol 30 mg q.8h, DuoNeb q.4 hours, Levaquin, sulfasalazine and other p.r.n. medications administration. DRUG ALLERGIES: Noted with no known drug allergies. PHYSICAL EXAMINATION: GENERAL: This is a 72-year-old white male currently noted to be awake and alert without acute distress. Height of 5 feet 6 inches, weight of 93 pounds, BMI only 15. VITAL SIGNS: The patient showed normal temperature, respiratory rate 22-26, heart rate of 96-120, blood pressure 110/48-107/75. The pulse oxygen saturation 3 liters cannula was 96% saturation. HEENT: Head was atraumatic. Eyes nonicterus. NECK: Supple. CARDIOVASCULAR: S1, S2 audible. LUNGS: The patient was noted with general reduction in the breath sounds bilaterally. There were no wheezes or crackles. ABDOMEN: Soft, nontender. Bowel sounds present. EXTREMITIES: The patient was noted without any acute edema, loss of muscle mass, which is chronic. CENTRAL NERVOUS SYSTEM: Unable to correctly assess, but there were no focal deficits. The patient moving up the lower extremities. SKIN: Visible skin, no lesions or rashes. LABORATORY DATA: PT/PTT yesterday noted normal. Lactic acid yesterday was noted normal. CMP yesterday on admission, normal BUN, creatinine and electrolytes. Albumin noted mildly decreased 2.9, total protein was decreased in the LFTs. CBC noted normal WBC count, hemoglobin and hematocrit normal, platelet count were normal. Chest x-ray that was done on admission was noted with evidence of a possible scarring and/or infiltration noted in the left lower lobe with a single view chest x-ray. CT scan of the chest was also done that was reviewed, shows changes of severe centrilobular emphysema, some scarring was noted in the right upper lobe. There were no abnormal pulmonary nodules. Small infiltration was noted in the right lower lobe with scarring, which appeared to be old in the left lower lobe. IMPRESSION: 1. The patient will be currently admitted to the hospital. The patient was [place], [place] REPORT OF CONSULTATION NAME: RENE CHAVARRIA UNIT #: [id number] ROOM: [facility] DOCTOR: MACY WHITE MD BIRTHDATE: [birth year] noted with possible consideration of acute pneumonia especially right lower lobe cannot be completely excluded. 2. History of nicotine abuse previously. 3. Low BMI with the suspicion of pulmonary cachexia with protein calorie malnutrition, very likely. 4. Chronic hypoxic respiratory failure as well. PLAN OF THERAPY: Ordered the sputum for Gram stain and culture. Titrate oxygen supplementation, maintain pulse ox saturation 92% or greater. Ordered the prealbumin level. Monitor culture results. Chest x-ray monitor ____ to assess the resolution of acute pneumonia in the right lower lobe. Additional treatment changes will be made for this patient based on the progression of the illness. Thanks for allowing me to participate in the care of this patient. MACY LÓPEZ MD CM:CONSTR:REPORT OF CONSULTATION 1623 08/20/17 0205 interface
[2017-08-18 14:32] LABS: HEMATOCRIT 48.2 % (42.0-52.0); HEMOGLOBIN 15.3 g/dl (14.0-18.0); MEAN CELL VOLUME 97.4 fl (80.0-94.0); MEAN CORPUSCULAR HGB 30.9 pg (27.0-31.0); MEAN CORPUSCULAR HGB CONC 31.7 g/dl (33.0-37.0); PLATELET COUNT AUTOMATED 345 10*3/uL (130-400); RED BLOOD COUNT 4.95 10*6/uL (4.50-5.90); RED CELL DISTRI WIDTH 14.1 % (0-14.5); WHITE BLOOD COUNT 9.4 10*3/uL (4.8-10.8)
[2017-08-18 14:44] LABS: ACT PARTIAL THROMBO TIME 23.3 SECONDS (20.8-31.5); INTERNATIONAL NORM RATIO 0.9 (2.0-3.5)
[2017-08-18 14:52] LABS: ALBUMIN 2.9 gm/dl (3.1-4.5); ALKALINE PHOSPHATASE 95 U/L (45-117); BUN 12 mg/dl (7-24); CHLORIDE 99 mmol/L (98-107); CREATININE 0.91 mg/dL (0.70-1.30); POTASSIUM 3.9 mmol/L (3.5-5.1); SGOT/AST 31 IU/L (3-35); SGPT/ALT 37 U/L (12-78); SODIUM 138 mmol/L (136-145); TOTAL PROTEIN 8.9 gm/dL (6.4-8.2)
[2017-08-18 14:55] LABS: TROPONIN I < 0.015 ng/ml (<0.045)
[2017-08-18 15:10] LABS: BASOPHILS 2 % (0-1); TOTAL CELLS COUNTED 100 #CELLS
[2017-08-18 15:11] LABS: PLATELET SUFFICIENCY NORMAL (NORMAL)
[2017-08-18] MEDS ORDERED: SULFAZINE500 MG PO (16:22)
[2017-08-18] MEDS ORDERED: DUONEB 3 MG/3 ML3 M1 INH (16:25)
[2017-08-18] MEDS ORDERED: NITRO-DUR1 EAC1 TD (16:26)
[2017-08-18] MEDS ORDERED: FLONASE ALLERG9.9 ML NAS (16:26)
[2017-08-18] MEDS ORDERED: BREO ELLIPTA 11 EACH INH (16:27)
[2017-08-18] MEDS ORDERED: FLOMAX0.4 MG PO (16:27)
[2017-08-18] MEDS ORDERED: AMITRIPTYLINE10 MG PO (16:28)
[2017-08-18] MEDS ORDERED: MEGACE40 MG PO (16:28)
[2017-08-18] MEDS ORDERED: LOMOTIL 2.5-0.1 EACH PO (16:28)
[2017-08-18] MEDS ORDERED: PRILOSEC20 M1 PO (16:29)
[2017-08-19] VITALS: BP 112/69
[2017-08-19 04:00] VITALS: BP 101/74
[2017-08-19 08:00] VITALS: BP 110/48
[2017-08-19 12:00] VITALS: BP 110/48
[2017-08-19 16:00] VITALS: BP 106/66
[2017-08-19 20:00] VITALS: BP 111/57
[2017-08-20] VITALS: BP 117/81
[2017-08-20 04:00] VITALS: BP 110/68
[2017-08-20 08:00] VITALS: BP 107/71
[2017-08-20 12:00] VITALS: BP 114/68
[2017-08-20 16:00] VITALS: BP 112/67
[2017-08-20 20:00] VITALS: BP 95/47
[2017-08-21] VITALS: BP 118/58
[2017-08-21 04:00] VITALS: BP 110/61
[2017-08-21 08:00] VITALS: BP 115/73
[2017-08-21 12:00] VITALS: BP 119/70
[2017-08-21 16:00] VITALS: BP 111/69
== END 2017-08-21 16:46 | DRG 314 ==
LOC: ED 13:08 → ICCU 14:30 → EDHOLD 14:30 → ICCU 14:56
PROVIDERS: Emergency Medicine
PROC: 5A09357 Assistance with Respiratory Ventilation, Less than 24 Consecutive Hours, Continuous Positive Airway Pressure (ICD-10-PCS; principal; 2017-08-18)
DX: I95.9 Hypotension, unspecified (principal); J18.1 Lobar pneumonia, unspecified organism; J96.21 Acute and chronic respiratory failure with hypoxia; Z99.81 Dependence on supplemental oxygen; E86.0 Dehydration; J44.1 Chronic obstructive pulmonary disease with (acute) exacerbation; E44.1 Mild protein-calorie malnutrition; J98.11 Atelectasis; Z68.1 Body mass index [BMI] 19.9 or less, adult; F41.1 Generalized anxiety disorder; G89.29 Other chronic pain; M54.5 Low back pain; I25.10 Atherosclerotic heart disease of native coronary artery without angina pectoris; F17.210 Nicotine dependence, cigarettes, uncomplicated; R62.7 Adult failure to thrive; M19.90 Unspecified osteoarthritis, unspecified site; I10 Essential (primary) hypertension; H91.90 Unspecified hearing loss, unspecified ear; Z88.8 Allergy status to other drugs, medicaments and biological substances; Z79.899 Other long term (current) drug therapy; Z79.82 Long term (current) use of aspirin; Z87.01 Personal history of pneumonia (recurrent); Z87.440 Personal history of urinary (tract) infections; Z95.1 Presence of aortocoronary bypass graft

== ENCOUNTER 2017-09-17 03:56 | Inpatient (IN) | payer MEDICARE ==
[~2017-09-17] VITALS: Ht 170.2 cm; Wt 43.7 kg
[2017-09-17] VITALS (64 sets, daily range): BP systolic 57–152; BP diastolic 0–147
--- NOTE | ~2017-09-17 | PR ---
[place], [place] PROGRESS NOTE NAME[id number] UNIT #: [id number] ROOM: [facility] DOCTOR: RENE COYNE MD,MACY BIRTHDATE: [birth year] DOS: 09/18/2017 PULMONARY CRITICAL CARE EVALUATION MANAGEMENT SUBJECTIVE: The patient is seen and examined on 09/18/2017. He remains on mechanical ventilator, was noted with progressive severe hypotension. The patient required three different vasopressor for the medical management of hypotension. He was also receiving intravenous bicarbonate drip because of severe acidosis. Lactic acidosis was also observed for this patient yesterday as well. He has been noted not struggling with shortness of breath this morning or gasping at the present time of assessment. The patient was noted without any new respiratory complication. The oxygen supplementation yesterday increased to 100%, does have difficulty requiring oxygen supplementation on this patient because of the decreased blood pressure. The feeding for the patient was placed on hold at the present time. He was noted with low-grade fever remains persistent at 99.7 degree Fahrenheit. PHYSICAL EXAMINATION: VITAL SIGNS: Temperature 99.7 degree Fahrenheit, respiratory rate range between 21-24, heart rate of 103-108 with atrial fibrillation, rapid ventricular response, blood pressure 91-69/86-39. Intake for the patient is 7.58 liters, the output was 1738 mL, positive of 5.8 liters. Pulse ox saturation was recorded as 100%, 50% oxygen this morning. HEENT: The patient remains orally intubated, orogastric tube is in place. NECK: Supple. CARDIOVASCULAR: S1, S2 is audible. LUNGS: Noted moderate decreased breath sounds bilaterally. There were no crackles. ABDOMEN: Flat, soft, nontender with hypoactive bowel sounds. CENTRAL NERVOUS SYSTEM: The patient was noted completely unconscious and was not receiving any sedation at this point. SKIN: Visible skin, no lesions or rashes. MUSCULOSKELETAL: Without any acute deformities. EXTREMITIES: Without acute edema, clubbing or cyanosis. LABORATORY DATA: CBC this morning, WBC count 17.1, hemoglobin 10, hematocrit 32.8, platelet count 106,000, 84% segmented neutrophils. Arterial blood gas of the patient, pH of 7.14, pCO2 of 43, pO2 of 56 with 100% oxygen assist control, volume control mechanical ventilation. BMP today, glucose 107, BUN 39, creatinine 1.58. Potassium 5.4. CO2 of 18, calcium noted 6.3 uncorrected with the albumin. Urine culture was noted heavy growth of yeast. Lactic acid 4.4. Troponin minimally elevated 0.18 yesterday as well. IMPRESSION: 1. The patient with persistent severe hypoxic respiratory failure with severe metabolic acidosis. 2. Lactic acidosis, secondary to hypoperfusion. 3. Severe sepsis with septic shock for this patient was also noted. 4. Acute kidney injury with oliguria, which has been noted previously seemed to be resolving in the last 24 hours. [place], [place] PROGRESS NOTE NAME: RENE CHAVARRIA UNIT #: [id number] ROOM: [facility] DOCTOR: RENE COYNE MD,[facility] BIRTHDATE: [birth year] 5. The patient with advanced chronic obstructive pulmonary disease. 6. Acute exacerbation of chronic obstructive pulmonary disease. 7. Atrial fibrillation with rapid ventricular response. 8. History of previous seizures. PLAN OF MANAGEMENT: 1. The patient continued to remain in a very critical status with severe hypotension, sepsis, septic shock, receiving the medical management accordingly. 2. Metabolic acidosis noted predominantly in the arterial blood gases as well, treated with the bicarbonate as well. 3. History of seizures as well. PLAN OF TREATMENT: The patient is receiving antibiotic, which will be continued based on the current culture results. Tried the lower tidal volume for the patient increasing peak flow to improve the ventilatory status. Continuation of the kidney management for this patient per Nephrology Services. Continue with vasopressor therapy. Nutritional support could be started for the patient as the patient continued remaining in current status. Discussion with the family members noted ongoing for the patient for change in code status because of current critical prognosis as well. In the meantime, no other change in treatment needs to be done. Usual care, other supportive therapy, plan of management and care. The patient's condition at this time in my opinion was noted irreversible because of history of end-stage chronic obstructive pulmonary disease and ongoing multiorgan system failure. If the decision is to be made for the patient by the primary care physician, liberation from mechanical ventilation and terminal weaning for the patient in conjunction with the agreement with the patient's family member certainly could be done as recommended. Morphine p.r.n. has been ordered for management of any distress. Other usual therapy, plan of management and care to be continued. Supportive care, plan of management and treatments. Total time in pulmonary critical care evaluation and management in today's note was 40 minutes. [place], [place] PROGRESS NOTE NAME: RENE CHAVARRIA UNIT #: [id number] ROOM: [facility] DOCTOR: MACY WHITE MD BIRTHDATE: [birth year] MACY LÓPEZ MD CM:IMANI [phone] MACY COYNE MD 09/19/17 0046 interface
--- NOTE | ~2017-09-17 | WRIGHTHP ---
[place], [place] PATIENT HISTORY AND PHYSICAL EXAM NAME: RENE CHAVARRIA [facility] #: [id number] UNIT #: [id number] ROOM: [facility] DOCTOR: SUNITA DUARTE MD BIRTHDATE: [birth year] DOS: 09/17/2017 HISTORY OF PRESENT ILLNESS: The patient is a 72-year-old gentleman with a past medical history of: 1. Adult failure to thrive. 2. COPD. 3. Nicotine smoke dependence. 4. Chronic lower back pains. 5. Generalized anxiety disorder. 6. Moderate protein-calorie malnutrition. 7. Coronary artery disease of the [place] vessels with coronary artery bypass grafts. 8. Chronic hypotension. 9. GERD and esophagitis. 10. Mixed hyperlipidemia. 11. Chronic respiratory failure and home oxygen dependence. 12. Abdominal aortic aneurysm repair. The patient presented to the Emergency Department, sent over from the assisted with shortness of breath. The patient was gasping for air and was in distress and nonverbal as well as shivering. The patient was found to be in acute respiratory failure and intubated and started on mechanical ventilation. The patient was also hypotensive and started on Levophed. The patient was seen to have bibasilar patchy atelectasis on lung x-ray and he was diagnosed as having acute exacerbation of COPD as well as pneumonia and sepsis and recommended for admission to the ICU and management. The patient maintained a DNR code status. After admission, the patient is unable to wake up or provide any history and he is still hypotensive and in a critical condition. SYSTEMS REVIEW: LUNGS: Increased shortness of breath. GASTROINTESTINAL: No nausea, vomiting, diarrhea or constipation. CARDIOVASCULAR: No complaint of chest pains or palpitations. FAMILY HISTORY: Noncontributory. HOME MEDICATIONS: Omeprazole, Flonase nasal spray, Breo inhaler, thiamine, Cymbalta, diltiazem, aspirin, oxycodone. ALLERGIES: No known drug allergies. PHYSICAL EXAMINATION: GENERAL APPEARANCE: The patient is mostly unresponsive, nonverbal, lying on the side with generalized muscle wasting and weakness and stage I decubitus over the lower back and right heel. HEENT AND NECK: Extraocular movements are intact. Sclerae are anicteric. Oral mucosa is moist and clean. No obvious facial weakness. Neck is supple without any lymphadenopathy. No thyromegaly. No JVD. No carotid arterial bruits. LUNGS: Clear to auscultation. No wheezing. No rhonchi. CARDIOVASCULAR SYSTEM: Heart rate is regular in rate and rhythm. S1 and S2 [place], [place] PATIENT HISTORY AND PHYSICAL EXAM NAME: RENE CHAVARRIA UNIT #: [id number] ROOM: [facility] DOCTOR: SUNITA DUARTE MD BIRTHDATE: [birth year] normally audible. No significant murmur or any other abnormal cardiac sounds. ABDOMEN: Soft, nontender. No obvious organomegaly. Bowel sounds are present. No obvious herniation. EXTREMITIES: Without significant cyanosis or edema. Warm to touch. CENTRAL NERVOUS SYSTEM: Alert and oriented x 3. Cranial nerves II-XII are intact. Speech is normal. The patient is able to move all extremities. Normal muscle strength. Deep tendon reflexes are equal on both sides. Plantars were downgoing. LABORATORY DATA: Blood gases are showing a pH of 7.13, bicarbonate level at 13.7, hemoglobin 12.7, albumin at 1.7, troponin I level normal. Hemoglobin 12.7, no leukocytosis, platelets normal. Chest x-ray showing bibasilar patchy atelectasis. IMPRESSION: 1. The patient is presenting with shock, sepsis, severe hypotension and acute respiratory failure along with pneumonia and urinary infection. The patient admitted to ICU in a critical condition. The patient's urine output is being monitored and he is being hydrated with boluses of normal saline and given some bicarbonate. The patient remains unresponsive and in a critical condition and his prognosis is very poor. The patient to be kept empirically on antibiotics and Dr. Garcia, the head esthetician, is following him. The patient is intubated and on mechanical ventilation. 2. Sepsis, hypotension, being treated with hydration and antibiotics. Bicarbonate is being infused and I got a Nephrology consult to maintain his electrolytes and fluid balance. [place] catheter is in place and the patient still has urinary output, which will be monitored hourly. 3. Severe hypotension from shock and sepsis, being treated as mentioned above and antibiotics. Blood counts and electrolytes will be monitored. Blood cultures to be sent if not sent from Emergency Department. Cardiac enzymes ordered. 4. History of coronary artery disease of the [place] vessels, coronary artery bypass grafts and myocardial infarction in the past, presently asymptomatic. Cardiac enzymes have been ordered. 5. Advance adult failure to thrive and poor underlying health with poor prognosis. 6. Stage I decubitus over the right heel and sacrum is being treated and patient is kept on air mattress with every 2-hour turning. 7. Acute exacerbation of chronic obstructive pulmonary disease with bilateral lower lung atelectasis versus pneumonia, being treated with mechanical ventilation and antibiotics along with oxygen to be given to keep pulse ox between 90 and 96%. Director Educational Radio, Dr. Garcia is following him. [place], [place] PATIENT HISTORY AND PHYSICAL EXAM [facility]: [id number] UNIT #: [id number] ROOM: [facility] DOCTOR: SUNITA DUARTE MD BIRTHDATE: [birth year] SUNITA DUARTE MD CM:HISPHYS:PATIENT HISTORY AND PHYSICAL EXAMINATION [id number] SUNITA DUARTE MD 09/17/17 1155 interface
--- NOTE | ~2017-09-17 | CON ---
[place], [place] REPORT OF CONSULTATION NAME: RENE CHAVARRIA UNIT #: [id number] ROOM: [facility] DOCTOR: RENE COYNE MD,MAYC BIRTHDATE: [birth year] DOS: 09/17/2017 PULMONARY CRITICAL CARE EVALUATION AND MANAGEMENT CONSULTATION REQUESTED BY: Dr. Sanchez/Dr. Chaney REASON FOR CONSULTATION: Assessment of current acute respiratory failure. HISTORY OF PRESENT ILLNESS: The patient has not been able to give me any history at this time. The patient noted completely unconscious, also receiving sedation and also intubated on mechanical ventilation on this admission. The patient's history was also known from previous medical records as the patient had seen on a recent admission and discharged to the nursing facility recently. The patient was brought to the hospital by the EMS and the patient noted with severe hypoxia and gasping for air and in respiratory distress. The patient was also reported a shivering sensation in the assessment done by the Emergency Room physician. The patient was assessed and immediately intubated and mechanical ventilation was started. The patient's has been contacted and I met with her in the Emergency Room as well. The patient's previous code status noted DNR comfort care by the paperwork signed as per the patient. However, I have witnessed that the patient has signed the medical records of the comfort care during his recent stay at [facility]. However, the patient is currently intubated, noted with gasping of breathing, and still noted with some respiratory distress and completely unconsciousness, appeared to be a pale. The patient was not noted with any findings of hemoptysis, frothy secretion from the endotracheal tube. Mechanical ventilation was continued on assist control, volume control, mechanical ventilation as well. The patient was also noted with hypotension later on, required the use of vasopressor therapy for medical management of progressive hypotension as well. PAST MEDICAL HISTORY: Noted for recent hospitalization in this hospital from 09/11/2017 until 09/14/2017 as the patient completed the treatment for acute exacerbation of COPD, acute pneumonia and others, and discharged to [facility], noted awake and alert, without any acute symptoms reported at that time. Past history is known with: 1. History of end-stage COPD. 2. History of chronic hypercapnia. 3. Chronic hypoxic respiratory failure, use of oxygen supplementation 3 liters nasal cannula. 4. Severe protein-calorie malnutrition status as well and cachexia. 5. The patient with past intubation and mechanical ventilation. 6. Coronary artery disease. 7. Essential hypertension. 8. Previously treated for left lower lobe pneumonia from aspiration, Gram-negative infection and Gram-positive, treated effectively with resolution of the pulmonary infiltration in 08/2017 hospitalization. 9. Degenerative arthritis. 10. Generalized anxiety disorder. 11. Chronic hearing loss. 12. Gastroesophageal reflux. [place], [place] REPORT OF CONSULTATION NAME: RENE CHAVARRIA UNIT #: [id number] ROOM: [facility] DOCTOR: RENE COYNE MD,MACY BIRTHDATE: [birth year] PAST SURGICAL HISTORY: Reported as: 1. Coronary artery bypass grafting. 2. Intubation and mechanical ventilation. 3. Therapeutic bronchoscopy done in 08/2017. 4. Lower back surgery, discectomy. 5. Repair of abdominal aortic aneurysm. SOCIAL HISTORY: The patient is , has 4 children, was living at the nursing facility prior to this hospitalization but was living at home a few months ago until his recent hospitalizations which were noted [id number]. He has been noted with tobacco use as a teenager, 2 packs of cigarettes per day that was discontinued until his admission in 08/2017. Currently, the patient has not been reported with any tobacco use at home. There is no history of illicit drug use. FAMILY HISTORY: Unknown. MEDICATIONS: The current administered medications noted the use of Lovenox for DVT prophylaxis, omeprazole, aspirin, Keppra, norepinephrine, and other p.r.n. medications. ALLERGIES: No known drug allergies. PHYSICAL EXAMINATION: GENERAL: This is a 72-year-old white male, quite cachectic and frail, currently intubated on mechanical ventilation, who has been currently noted to be unconscious with some respiratory distress as well. Height recorded by the nursing staff noted with height of 5 feet 7 inches, weight of 96 pounds, BMI of 15.1. VITAL SIGNS: The pulse oxygen saturation recorded as 96-100% on 100% oxygen supplementation. The vital signs which were recorded show blood pressure on admission this morning was noted as 81/53 with later blood pressure noted at 106/87. Heart rate noted with atrial fibrillation/sinus tachycardia, suspected rate between 115-120. The respiratory rate was recorded as 29-23. Temperature noted as normal. Intake at this time was not documented. Output was noted a few milliliters of urine in the urinary bag. HEENT: The patient is currently orally intubated. Orogastric tube is in place. NECK: Supple. CARDIOVASCULAR: S1, S2 is audible. LUNGS: Generalized reduction of the breath sounds noted bilaterally. Scattered expiratory wheezing. ABDOMEN: Soft, nontender with absent bowel sounds. CENTRAL NERVOUS SYSTEM: Severe change in mental status without any response to vocal commands. Some response by withdrawal of the extremities with deep painful stimuli. VISIBLE SKIN: No lesions. No rashes. MUSCULOSKELETAL: Noted without any acute deformities at this time. RADIOLOGY DATA: Chest x-ray that was done in the Emergency Room on 09/17/2017 [place], [place] REPORT OF CONSULTATION NAME: RENE CHAVARRIA UNIT #: [id number] ROOM: [facility] DOCTOR: RENE COYNE [facility] BIRTHDATE: [birth year] noted NG tube in the stomach. Endotracheal tube was noted about 5 cm above the rosa m level. Changes also of severe hyperinflation and COPD were present. Small bilateral pleural fluid with patchy area of infiltrate was also noted. LABORATORY DATA: CMP this morning on admission 09/17/2017: Glucose 278, BUN 27, creatinine 1.24, CO2 noted at 20, calcium uncorrected noted as 6.9. Albumin noted decreased at 1.7. CBC this morning: Hemoglobin 12.7, platelet count was normal, WBC count normal as well. The arterial blood gas that was done on 09/17/2017 in the Emergency Room, pH is 7.10, pCO2 of 53, pO2 of 202. The other arterial blood gas, which was repeated on this admission noted with possibility of mixed venous gas. The ionized calcium noted mildly decreased again this morning on 09/07/2017. IMPRESSION: 1. The patient who had developed ____ hypercapnic and hypoxic respiratory failure with severe metabolic acidosis with possible lactic acidosis, sepsis, and rule out myocardial infarction will be considered in the differential diagnosis. 2. Bilateral lower lobe pneumonia, possibility of aspiration and/or atelectasis would be considered as well. 3. Chronic protein-calorie malnutrition. 4. History of seizures. 5. The patient with a history of generalized anxiety disorder. 6. Coronary artery disease. 7. Past DNR comfort care status as well. 8. History of end-stage chronic obstructive pulmonary disease known as well. 9. History of past seizures as well. PLAN OF MANAGEMENT: The patient is currently noted on mechanical ventilation. The discussion has been done at length with the patient's spouse. She would like to be continued to be intubated for the patient at the present time and would not like him to be terminally extubated based on the code status. Other paperwork could be obtained for the patient from [facility]. In the meantime, palliative care will be continued with use of combination of fluids with vasopressors. Obtain the lactic acid to assess the acidosis component, acute kidney injury. Also noted elevation of creatinine, multifactorial secondary to the possibility of recurrent sepsis, intravascular volume depletion and/or acute tubular necrosis as well. The patient will be continued with current ventilator bundle management, which was started. Nephrology consultation was asked because of current acute kidney injury and oliguria. Adjust the fluids according to the recommendations by the Nephrology services. Continuation of the antibiotics. Use of the bicarbonate as necessary for the management of metabolic acidosis. Obtain the documentation from [facility]. The patient was noted as comfort care patient and no other documentation is noted contrary to that. The patient should be removed from the mechanical ventilator and the comfort care to be instituted. Other supportive therapy plan of management and care for plan at this time. Obtain ethics committee consultation if necessary as well. Usual care, other plan of management and therapies. Additional treatment changes will be made for the [place], [place] REPORT OF CONSULTATION NAME: RENE CHAVARRIA UNIT #: [id number] ROOM: [facility] DOCTOR: MACY WHITE MD BIRTHDATE: [birth year] patient based on progression of the illness. Overall prognosis of the patient is noted quite guarded with current multiorgan system failure. Total time in pulmonary critical care evaluation and management for the patient was 35 minutes. MACY LÓPEZ MD CM:CONSTR:REPORT OF CONSULTATION 1452 09/17/17 0616 interface
--- NOTE | ~2017-09-17 | EKG ---
[place], [place] ELECTROCARDIOGRAM REPORT NAME: RENE CHAVARRIA UNIT #: [id number] ROOM: [facility] DOCTOR: RENE COYNE MD,MACY BIRTHDATE: [birth year] DOS: 09/17/2017 The electrocardiogram done on 09/17/2017 and 4:49 a.m. Atrial fibrillation noted. Mild rapid ventricular response. The patient's heart rate of 106 beats per minute. Baseline artifact in the EKG for the patient was also noted. Question of ST segment elevation with inferior myocardial infarction would be suggested. MACY LÓPEZ MD CM:EKGRPT:ELECTROCARDIOGRAM REPORT [id number] 1956 MACY COYNE MD
--- NOTE | ~2017-09-17 | CON ---
[place], [place] REPORT OF CONSULTATION NAME: RENE CHAVARRIA UNIT #: [id number] ROOM: [facility] DOCTOR: BASILIO BRADLEY MD BIRTHDATE: [birth year] DOS: 09/17/2017 HISTORY OF PRESENT ILLNESS: The patient was seen at his bedside in the intensive care unit today 09/17/2017 with his son in attendance. The patient is intubated and on a ventilator and unable to provide any history. History was obtained from the old records, nursing staff, and son. The patient is a 72-year-old man who has a history of severe/end end-stage pulmonary disease. He has been hospitalized on several occasions lately with respiratory failure, pneumonia, aspiration, etc. He also has a history of atherosclerotic heart disease. He was seen in 2012 by the [facility] when he was hospitalized here with influenza and ventricular tachycardia. The patient did undergo an echocardiogram at that time, which showed a very limited exam. The left ventricular size and systolic function were normal. There did appear to be basal septal and inferobasal hypokinesis. Mild mitral insufficiency was present. A myocardial perfusion study done in January 2013 showed a normal study with ejection fraction of 64%. The patient has not been seen by cardiology since that time to my knowledge. He presents now in transfer from the [facility] with worsening respiratory distress requiring intubation. The patient is in shock with a very low blood pressure. Since admission, he has been intubated and placed on a ventilator. He has been given over 6 liters of IV fluid and is on a maximum Levophed dose. Despite this, his systolic blood pressure by arterial line is only about 60-70 mmHg. The patient is not sedated, but is minimally responsive on the ventilator. According to the patient's son, up until about 48 hours ago, he was awake and alert and his son was taking [facility] upon demand, so that he can smoke. PAST MEDICAL HISTORY: Includes 1. Atherosclerotic heart disease. The patient is status post bypass surgery in the distant past. Details are not available. According to the note dictated by Dr. Jose Garcia in 2012, the patient claimed to have had 3 previous heart attacks and had subsequent bypass surgery. At that time, he stated that the bypass surgery was over 20 years prior to 2012. 2. Severe obstructive lung disease. 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 History of bypass surgery in the remote past. 4. Chronic hypoxic respiratory failure. The patient is on continuous home oxygen. 5. History of essential hypertension. 6. History of chronic hearing loss. 7. History of gastrointestinal bleeding. 8. History of lower back surgery. 9. Status post abdominal aortic aneurysm repair. REVIEW OF SYSTEMS: Impossible. MEDICATIONS: Prior to admission Breo Ellipta 1 inhalation daily, DuoNeb by nebulizer q.4 hours, Flonase nasal spray daily, artificial tears t.i.d., Percocet 325/5 q.8 hours p.r.n., alprazolam 0.5 mg q.8 hours p.r.n., [employer] [place], [place] REPORT OF CONSULTATION NAME: RENE CHAVARRIA UNIT #: [id number] ROOM: [facility] DOCTOR: BASILIO BRADLEY MD BIRTHDATE: [birth year] plus nutritional supplement 30 mL b.i.d., aspirin 81 mg daily, diltiazem 60 mg q.8 hours, Cymbalta 30 mg daily, Keppra 1000 mg b.i.d., megestrol acetate 400 mg per 10 mL b.i.d., omeprazole 1 tablet daily, potassium 20 mEq daily, Risperdal 0.5 mg at bedtime, thiamine 100 mg daily and enoxaparin 40 mg subcutaneously daily. ALLERGIES: The patient has no known drug allergies. SOCIAL HISTORY: The patient is . He has a long history of cigarette abuse and continues to smoke up until the time of this admission. PHYSICAL EXAMINATION: GENERAL: The patient is an elderly, cachectic-appearing, white male who is obtunded and on a ventilator. VITAL SIGNS: Pulse is 90 and regular, blood pressure by arterial line is currently 108/65, oxygen saturation is 93%. HEENT: Normocephalic and atraumatic. Extraocular muscles are intact. Oral mucosa is moist and he is orally intubated. NECK: Supple. He does have jugular distention with hepatojugular reflux. Carotids are diminished. I heard no bruits. Respirations are per ventilator and appeared to be labored. LUNGS: He has diminished breath sounds bilaterally. I heard no rales. CARDIOVASCULAR: Heart has very distant tones. He does have a regular rhythm. He has a fourth heart sound. I did not hear a third heart sound or obvious murmur. ABDOMEN: Firm and very hypoactive. No specific mass or rebound was seen. EXTREMITIES: Very slender. There is no peripheral edema seen. He does have some mottling of his knees. Peripheral pulses are absent in the feet. LABORATORY DATA: The patient's electrocardiogram showed sinus tachycardia with nonspecific IVCD and nonspecific ST and T-wave changes with low voltage in the limb leads. No acute changes were seen. We did do a stat bedside echocardiogram. The study was a very poor quality and very technically limited. The left ventricular size is normal. Abnormal septal motion is present consistent with right ventricular overload. The right ventricle does appear enlarged. He does have mild tricuspid insufficiency. Left ventricular systolic function appears to be preserved with an ejection fraction of about 50%. There is no pericardial effusion present. Hemoglobin is 12.7, hematocrit 38.7, white count 7100, platelet count 211,000. INR is 1.0. Sodium is 143, potassium 4.9, chloride 112, CO2 of 20, BUN 27, creatinine 1.24. Lactic acid after several liters of fluid was still elevated at 4.3. Troponin was normal at 0.031. Blood gas on the ventilator showed a pH of 7.129 with a pCO2 of 43, pO2 of 56.2 and a bicarbonate of 13.7. The patient was given 0.5 mg of epinephrine intravenously. Blood pressure immediately improved dramatically and the arterial line pattern became more normal. As this wore off, he returned to his previous vital signs and arterial line pattern. [place], [place] REPORT OF CONSULTATION NAME: RENE CHAVARRIA UNIT #: [id number] ROOM: [facility] DOCTOR: BASILIO BRADLEY MD BIRTHDATE: [birth year] IMPRESSION: 1. Septic shock. The patient has been adequately fluid resuscitated as demonstrated by the presence of neck vein distention and a dilated IVC on his echocardiogram. His left ventricular systolic function is normal. It is most likely that his pressures are low because of peripheral arterial dilation from sepsis. 2. History of coronary artery disease with remote bypass surgery. 3. End-stage lung disease. 4. Cachexia with malnutrition -- severe. 5. Ongoing cigarette abuse. PLAN: We will place the patient on an epinephrine drip in order to try to maintain his mean blood pressure while his infection is being treated. Given his poor nutrition, septic state, severe lung disease, etc, his prognosis has to be considered very poor. [facility] and I thank Dr. Sanchez for asking our advice regarding the patient's care. BASILIO BRADLEY MD CM:CONSTR:REPORT OF CONSULTATION 1634 09/18/17 0516 interface
--- NOTE | ~2017-09-17 | PR ---
[place], [place] PROGRESS NOTE NAME: RENE CHAVARRIA UNIT #: [id number] ROOM: [facility] DOCTOR: SUNITA DUARTE MD BIRTHDATE: [birth year] DOS: 09/19/2017 SUBJECTIVE: Patient is status post extubation and has agonal breathing. His family is present with him. OBJECTIVE: VITAL SIGNS: Blood pressure 77/41, heart rate of 116 beats per minute, breathing about 13 times per minute, temperature 100.4 degrees Fahrenheit. GENERAL: Patient unresponsive with agonal breathing. RESPIRATORY: Lungs show rhonchi and wheezing in his lungs all over and not moving. ABDOMEN: Normal. IMPRESSION: 1. Patient with acute respiratory failure, off mechanical ventilation in for end of life care now. Dr. Garcia, the wrinkle chaser is following him. All family present with him is agreeable to end of life care. Patient was given intravenous morphine and then taken off mechanical ventilation because the treatment was not helping him and his health was continuously declining and he remained unresponsive despite of treatment. 2. Hypotension related to sepsis. 3. Acute kidney failure related to hypotension and sepsis. 4. Sepsis related to pneumonia and urinary infection along with leukocytosis with white cell count of 17,000. 5. Chronic advanced adult failure to thrive. We took bedsore and fall precautions. 6. Stage I decubitus of right heel and lower back, was being monitored closely. 7. Acute respiratory failure, was initially treated with mechanical ventilation until he was extubated this morning. SUNITA DUARTE MD CM:PNTRANS [id number] SUNITA DUARTE MD 09/20/17 0000 interface
--- NOTE | ~2017-09-17 | PR ---
[place], [place] PROGRESS NOTE NAME: [id number] UNIT #: [id number] ROOM: [facility] DOCTOR: RENE COYNE MD,MACY BIRTHDATE: [birth year] DOS: 09/19/2017 PULMONARY PROGRESS NOTE SUBJECTIVE: The patient is noted comfortable at this time, noted unconscious, did not require any sedation. Continuous vasopressor therapy was noted with intermittent hypotension. The family members have decided for terminal liberation from mechanical ventilator. The patient was also assessed by the primary care attending, Dr. Sanchez and he concurred with that as well. There are wishes of the patient to terminally extubate her, remove from mechanical ventilator, stop the other life supporting measure including vasopressors. Comfort measures to be continued with palliative care. OBJECTIVE: VITAL SIGNS: Showed temperature of 100.4 degrees Fahrenheit, respirations 17, heart rate 116 with atrial fibrillation, blood pressure of 78/44, pulse ox saturation on 50% oxygen supplementation noted 99% saturation at bedside. HEENT: Pallor of the face was noted. Head was atraumatic. Orogastric tube and endotracheal tube remains in place. NECK: Supple. CARDIOVASCULAR: S1, S2 audible. LUNGS: Noted with moderately decreased breath sounds bilaterally. There was no wheezing. ABDOMEN: Soft. Hypoactive bowel sounds. EXTREMITIES: Noted without edema, clubbing, or cyanosis. CENTRAL NERVOUS SYSTEM: Unconsciousness is noted at the present time. MUSCULOSKELETAL: No acute deformities. LABORATORY DATA: CBC today: WBC count 17.2, hemoglobin 9.2, hematocrit 27.8, platelet count of 25,000. BMP this morning: Glucose 103, BUN 21, creatinine 2.03, calcium 5.3, potassium 5.3, sodium 135. IMPRESSION: 1. Multiorgan system failure noted with persistent severe hypotension with acute sepsis. 2. Thrombocytopenia, most likely secondary to disseminated intravascular coagulation would be considered with current sepsis. 3. Severe hypotension and shock status with unconsciousness as well. 4. History of known advanced chronic obstructive pulmonary disease. PLAN OF MANAGEMENT: The patient's condition remains terminal or irreversible today as well. At this time, the patient could be liberated from mechanical ventilator, vasopressor stop whenever desired by the family members. Detailed discussion about that and further process after liberation from mechanical ventilator, comfort and palliative care was discussed with the patient's spouse; she was agreeable with that. Instructions were given to the nursing staff. The patient has already been ordered morphine that has been used p.r.n. for any distress. [place], [place] PROGRESS NOTE NAME: RENE CHAVARRIA UNIT #: [id number] ROOM: [facility] DOCTOR: MACY WHITE MD BIRTHDATE: [birth year] MACY LÓPEZ MD CM:PNRICHMOND [id number] MACY COYNE MD 09/19/17 1611 interface
--- NOTE | ~2017-09-17 | DS ---
[place], [place] DISCHARGE SUMMARY NAME: RENE CHAVARRIA UNIT #: [id number] ROOM: [facility] DOCTOR: GERALD ADAIRSUNITA J BIRTHDATE: [birth year] DOS: 09/19/2017 DISCHARGE DIAGNOSES: 1. The patient from respiratory failure and terminal weaning of the mechanical ventilator. 2. Acute respiratory failure. 3. Sepsis, hypotension, shock from pneumonia. 4. Advanced adult failure to thrive. 5. Stage I decubitus, right heel and lower back. 6. Acute exacerbation of chronic obstructive pulmonary disease. 7. Generalized anxiety disorder. 8. Moderate protein calorie malnutrition. 9. Coronary artery disease of [place] vessel, with coronary artery bypass grafts. 10. Nicotine smoke dependence. 11. Gastroesophageal reflux disease and esophagitis. 12. Mixed hyperlipidemia. 13. Chronic respiratory failure, with home oxygen dependence. 14. Abdominal aortic aneurysm repair. HOSPITAL COURSE: The patient presented with increased shortness of breath and he was gasping for air in the Emergency Department. He was nonverbal and shivering. The patient was found to be in acute respiratory failure and sepsis and hypotension and shock. The patient intubated and started on mechanical ventilation, hydration with IV fluids and Levophed infusion. The patient's blood pressures remained low despite of hydration and using pressors. Cardiology was consulted who followed the patient and he was also treated with antibiotics and his condition did not improve. Finally, the patient was declared terminal and irreversible and on family's request his mechanical ventilation was stopped and soon after extubation the patient's breathing continued to get worse and then he stopped breathing. Hypotension, sepsis and shock with pneumonia, treated with antibiotics with no significant improvement. Severe hypotension, which was persistent, related to infection and sepsis from pneumonia and urinary infection. Coronary artery disease of [place] vessels, with coronary artery bypass grafts and myocardial infarction in the past. Advanced adult failure to thrive with underlying poor health and poor prognosis. Stage I decubital over the right heel and lower back were protected and he was turned every 2 hours and air mattress was used. Acute exacerbation of COPD with pneumonia, bilateral lower lung atelectasis, pneumonia and respiratory failure, treated with intubation and mechanical ventilation. 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 [place], [place] DISCHARGE SUMMARY NAME: RENE CHAVARRIA UNIT #: [id number] ROOM: [facility] DOCTOR: GERALD ADAIR,SUNITA Alberto BIRTHDATE: [birth year] LABORATORY DATA: Lactic acid level elevated to 4.4. BUN and creatinine 51 and 2, calcium level low at 5.3, potassium level at 5.3. Blood cultures were negative. Urine cultures grew heavy [place]. Blood gases showed metabolic acidosis and cardiac enzymes were borderline positive. The patient's treatment was Cymbalta 30 mg a day, Keppra 500 mg b.i.d., Protonix 40 mg b.i.d. He was on infusion of norepinephrine, normal saline with bicarbonate and norepinephrine. He was getting MiraLax via NG tube, morphine, Xanax as needed. SUNITA DUARTE MD CM:[id number] SUNITA DUARTE MD 09/19/177 interface
--- NOTE | ~2017-09-17 | PR ---
[place], [place] PROGRESS NOTE NAME: RENE CHAVARRIA UNIT #: [id number] ROOM: [facility] DOCTOR: BASILIO BRADLEY MD BIRTHDATE: [birth year] DOS: 09/18/2017 CARDIOLOGY PROGRESS NOTE SUBJECTIVE: The patient was seen at his bedside today in the Intensive Care Unit on 09/18/2017. He is intubated and on a ventilator. He is totally unresponsive despite the fact that he has received no sedating medications. His blood pressure remains very low, even though he is on both norepinephrine and epinephrine. Family members have discussed his case at length and have decided to change his status to comfort care only and there is discussion of a terminal ventilator wean. PHYSICAL EXAMINATION: VITAL SIGNS: Today, his pulse is 100 and regular, blood pressure is 72/38. He is orally intubated. NECK: Supple. He does have jugular distention to the angle of the jaw. Carotids are full. LUNGS: Respirations are per vent, but do seem labored. He has decreased breath sounds at the bases. HEART: Has a regular rhythm with an S4 gallop. Heart tones are very distant. ABDOMEN: Benign. EXTREMITIES: Show some mottling of the knees. He has no peripheral edema. LABORATORY DATA: Hemoglobin is 10.0, white count 17,100, platelet count 106,000. Blood gas today shows a pH of 7.142 with a pCO2 of 43 and a pO2 of 256, bicarb is 14.1. Lactic acid levels remain elevated at 4.4. There is a mild elevation of troponin at 0.151. Sodium is 141, potassium 5.4, chloride 112, CO2 18, BUN 39, creatinine 1.28. The patient continues to be extremely hypotensive. I believe that this is due to sepsis and peripheral vasodilation. In any case, his multiple medical problems, malnutrition, end-stage lung disease, etc., make his prognosis very poor. I certainly agree with treating him with comfort care measures only. I thank the hospitalist physicians for asking our advice regarding his care. [place], [place] PROGRESS NOTE NAME: RENE CHAVARRIA UNIT #: [id number] ROOM: [facility] DOCTOR: BASILIO BRADLEY MD BIRTHDATE: [birth year] BASILIO BRADLEY MD CM:[id number] BASILIO BRADLEY MD 09/18/17 1534 interface
--- NOTE | ~2017-09-17 | PR ---
[place], [place] PROGRESS NOTE NAME: RENE CHAVARRIA UNIT #: [id number] ROOM: [facility] DOCTOR: SUNITA DUARTE MD BIRTHDATE: [birth year] DOS: The patient remains in the ICU and doing poorly. The patient remains hypotensive and unresponsive, still intubated and on mechanical ventilation. The patient's family and durable power of criminal attorney have finally decided to make him comfort care only and terminally wean him off mechanical ventilation. Me and Dr. Garcia, the yard truck driver agree on this. The patient remains on pressors including epinephrine and Levophed. IMPRESSION: 1. The patient with sepsis, shock, hypotension and acute respiratory failure with pneumonia and urine infection, has been treated with antibiotics, IV fluids, pressors, mechanical ventilation and evaluated by Pulmonology and Cardiology and he appears to be terminal and irreversible. The patient has not responded much to treatment and remains unresponsive. The patient's family is requesting terminal wean and Dr. Garcia is aware. 2. Severe hypotension, treated with hydration and pressors. Now, the patient is anuric. [place] catheter is being maintained. 3. Acute kidney failure related to hypotension. The patient is anuric now. [place] catheter is being maintained and the patient hydrated with IV fluids. 4. Advance adult failure to thrive and poor underlying health with poor prognosis for some time now. 5. Stage I decubitus at the right heel and lower back, being treated with every 2-hour turning on the air mattress and wound care. 6. Acute respiratory failure, treated with mechanical ventilation, bronchodilators, antibiotics, oxygen and yard truck driver following. SUNITA DUARTE MD CM:[id number] SUNITA DUARTE MD 09/18/17 2006 interface
[~2017-09-17 03:56] MED LIST changes: +AMITRIPTYLINE10 MG PO; +B-1100 M1 PO; +BREO ELLIPTA 11 EACH INH; +CARDIZEM60 MG PO; -CYMBALTA20 M1 PO; +CYMBALTA30 MG PO; -DILTIAZEM30 MG PO; +FLOMAX0.4 MG PO; +FLONASE ALLERG9.9 ML NAS; +LOMOTIL 2.5-0.1 EACH PO; +Lovenox40 MG/0.4 PO; +MEGACE 40400 MG/10 PO; +MICONAZOLE NIT130 GM T; +NITRO-DUR1 EAC1 TD; +POTASSIUM CHLO20 ME3 PO; +PRILOSEC20 M1 PO; +Percocet 325 MG1 TAB PO; +REGLAN10 MG/10 M PO; +SOLU-MEDRO40 MG/1 ML IV; +SULFASALAZINE500 MG PO; +SULFAZINE500 MG PO; +TEARS NATURALE,15 ML OPH
[2017-09-17 04:28] LABS: HEMATOCRIT 38.7 % (42.0-52.0); HEMOGLOBIN 12.7 g/dl (14.0-18.0); MEAN CORPUSCULAR HGB 33.2 pg (27.0-31.0); MEAN CORPUSCULAR HGB CONC 32.8 g/dl (33.0-37.0); MEAN PLATELET VOLUME 9.8 fl (9.6-12.3); RED BLOOD COUNT 3.83 10*6/uL (4.50-5.90); RED CELL DISTRI WIDTH 18.7 % (0-14.5); WHITE BLOOD COUNT 7.1 10*3/uL (4.8-10.8)
[2017-09-17 04:29] LABS: PLATELET COUNT AUTOMATED 211 10*3/uL (130-400)
[2017-09-17 04:39] LABS: ACT PARTIAL THROMBO TIME 20.4 SECONDS (20.8-31.5)
[2017-09-17 04:53] LABS: ALBUMIN 1.7 gm/dl (3.1-4.5); ALKALINE PHOSPHATASE 68 U/L (45-117); CHLORIDE 112 mmol/L (98-107); CPK 34 U/L (39-308); CREATININE 1.24 mg/dL (0.70-1.30); SGOT/AST 16 IU/L (3-35); SGPT/ALT 20 U/L (12-78); SODIUM 143 mmol/L (136-145); TOTAL PROTEIN 3.9 gm/dL (6.4-8.2)
[2017-09-17 04:54] LABS: CKMB 4.1 ng/ml (0.5-3.6); TROPONIN I 0.031 ng/ml (<0.045)
[2017-09-17 04:55] LABS: BUN 27 mg/dl (7-24); POTASSIUM 4.9 mmol/L (3.5-5.1)
[2017-09-17 04:59] LABS: PLATELET SUFFICIENCY NORMAL (NORMAL); TOTAL CELLS COUNTED 100 #CELLS
[2017-09-17 05:24] LABS: ABG HCO3 16.2 mmol/l (22-26); ABG O2 SATURATION 98.2 % (95-97); ARTERIAL BLOOD GAS PCO2 53.9 mmHg (35-45)
[2017-09-17 05:26] LABS: ABG BASE EXCESS -12.8 mmol/L (-2.0-2.0); ARTERIAL BLOOD GAS PH 7.106 (7.35-7.45)
[2017-09-17 07:19] LABS: BILIRUBIN NEGATIVE (NEGATIVE); BLOOD 3+ (NEGATIVE); CLARITY CLOUDY (CLEAR); COLOR YELLOW (YELLOW); GLUCOSE NEGATIVE (NEGATIVE); KETONE NEGATIVE (NEGATIVE); LEUKO ESTERASE 1+ (NEGATIVE); NITRITE NEGATIVE (NEGATIVE); UROBILINOGEN 0.2 E.U./dl (0.2-1.0)
[2017-09-17] MEDS ORDERED: RISPERDAL0.5 MG PO (07:40)
[2017-09-17] MEDS ORDERED: NOVAPLUS L40 MG/0.4 SC (07:49)
[2017-09-17] MEDS ORDERED: KEPPRA1000 MG PO (07:50)
[2017-09-17] MEDS ORDERED: PROSOURCE PLUS30 ML PO (07:56)
[2017-09-17 07:59] LABS: RBC TNTC rbc/hpf (0-2); WBC 41-50 wbc/hpf (0-5)
[2017-09-17 08:00] LABS: BACTERIA 1+; MUCOUS 2+; YEAST 4+
[2017-09-17 09:00] LABS: ABG HCO3 13.7 mmol/l (22-26); ABG O2 SATURATION 80.4 % (95-97); ARTERIAL BLOOD GAS PCO2 43.2 mmHg (35-45); ARTERIAL BLOOD GAS PO2 56.2 mmHg (80-90)
[2017-09-17 09:04] LABS: ARTERIAL BLOOD GAS PH 7.129 (7.35-7.45)
[2017-09-18] VITALS (88 sets, daily range): BP systolic 60–141; BP diastolic 35–106
[2017-09-18 05:41] LABS: CHLORIDE 112 mmol/L (98-107); CREATININE 1.28 mg/dL (0.70-1.30); POTASSIUM 5.4 mmol/L (3.5-5.1); SODIUM 141 mmol/L (136-145)
[2017-09-18 05:47] LABS: BUN 39 mg/dl (7-24)
[2017-09-18 06:30] LABS: HEMATOCRIT 32.8 % (42.0-52.0); MEAN CORPUSCULAR HGB 32.1 pg (27.0-31.0); MEAN CORPUSCULAR HGB CONC 30.5 g/dl (33.0-37.0); MEAN PLATELET VOLUME 10.8 fl (9.6-12.3); NUCLEATED RED BLOOD CELL 0.1 % (0.0-0.0); RED BLOOD COUNT 3.12 10*6/uL (4.50-5.90); RED CELL DISTRI WIDTH 18.3 % (0-14.5); WHITE BLOOD COUNT 17.1 10*3/uL (4.8-10.8)
[2017-09-18 06:38] LABS: MEAN CELL VOLUME 105.1 fl (80.0-94.0); PLATELET COUNT AUTOMATED 106 10*3/uL (130-400)
[2017-09-18 07:11] LABS: ABG HCO3 14.1 mmol/l (22-26); ABG O2 SATURATION 99.2 % (95-97); ARTERIAL BLOOD GAS PCO2 43.3 mmHg (35-45)
[2017-09-18 07:14] LABS: ABG BASE EXCESS -13.8 mmol/L (-2.0-2.0)
[2017-09-18 07:15] LABS: ARTERIAL BLOOD GAS PH 7.142 (7.35-7.45)
[2017-09-18 07:16] LABS: BURR CELLS MANY; DOHLE BODIES FEW; PLATELET SUFFICIENCY LOW (NORMAL); TOTAL CELLS COUNTED 100 #CELLS
[2017-09-19] VITALS (51 sets, daily range): BP systolic 71–118; BP diastolic 25–73
[2017-09-19 05:48] LABS: CREATININE 2.03 mg/dL (0.70-1.30); POTASSIUM 5.3 mmol/L (3.5-5.1)
[2017-09-19 06:10] LABS: HEMATOCRIT 27.8 % (42.0-52.0); HEMOGLOBIN 9.2 g/dl (14.0-18.0); MEAN CORPUSCULAR HGB 32.7 pg (27.0-31.0); MEAN CORPUSCULAR HGB CONC 33.1 g/dl (33.0-37.0); MEAN PLATELET VOLUME 10.2 fl (9.6-12.3); NUCLEATED RED BLOOD CELL 0.2 % (0.0-0.0); RED BLOOD COUNT 2.81 10*6/uL (4.50-5.90); RED CELL DISTRI WIDTH 19.2 % (0-14.5); WHITE BLOOD COUNT 17.2 10*3/uL (4.8-10.8)
[2017-09-19 06:17] LABS: MEAN CELL VOLUME 98.9 fl (80.0-94.0)
[2017-09-19 06:43] LABS: TOTAL CELLS COUNTED 100 #CELLS
[2017-09-19 06:44] LABS: BURR CELLS MANY; DOHLE BODIES FEW; HOWELL-JOLLY BODIES FEW; PLATELET SUFFICIENCY LOW (NORMAL); TOXIC GRANULATION SLIGHT
[2017-09-19 06:47] LABS: PLATELET COUNT AUTOMATED 25 10*3/uL (130-400)
== END 2017-09-19 18:09 | disposition expired | DRG 871 ==
LOC: ED 03:56 → ICCU 04:29 → EDHOLD 04:29 → ICCU 05:11
PROVIDERS: Emergency Medicine; Internal Medicine; Internal Medicine Critical Care Medicine
PROC: 02HV33Z Insertion of Infusion Device into Superior Vena Cava, Percutaneous Approach (ICD-10-PCS; principal; 2017-09-17)
PROC: 5A1945Z Respiratory Ventilation, 24-96 Consecutive Hours (ICD-10-PCS; principal; 2017-09-17)
PROC: B548ZZA Ultrasonography of Superior Vena Cava, Guidance (ICD-10-PCS; principal; 2017-09-17)
PROC: 0BH17EZ Insertion of Endotracheal Airway into Trachea, Via Natural or Artificial Opening (ICD-10-PCS; principal; 2017-09-17)
DX: A41.9 Sepsis, unspecified organism (principal); J18.9 Pneumonia, unspecified organism; J96.21 Acute and chronic respiratory failure with hypoxia; R65.21 Severe sepsis with septic shock; E43 Unspecified severe protein-calorie malnutrition; L89.151 Pressure ulcer of sacral region, stage 1; N17.9 Acute kidney failure, unspecified; I48.91 Unspecified atrial fibrillation; D69.6 Thrombocytopenia, unspecified; J96.22 Acute and chronic respiratory failure with hypercapnia; J44.1 Chronic obstructive pulmonary disease with (acute) exacerbation; N39.0 Urinary tract infection, site not specified; I25.810 Atherosclerosis of coronary artery bypass graft(s) without angina pectoris; J44.0 Chronic obstructive pulmonary disease with (acute) lower respiratory infection; Z68.1 Body mass index [BMI] 19.9 or less, adult; Z66 Do not resuscitate; Z51.5 Encounter for palliative care; L89.611 Pressure ulcer of right heel, stage 1; I34.0 Nonrheumatic mitral (valve) insufficiency; R62.7 Adult failure to thrive; K21.0 Gastro-esophageal reflux disease with esophagitis; E78.2 Mixed hyperlipidemia; I10 Essential (primary) hypertension; F41.1 Generalized anxiety disorder; M19.90 Unspecified osteoarthritis, unspecified site; F17.200 Nicotine dependence, unspecified, uncomplicated; H91.90 Unspecified hearing loss, unspecified ear; Z95.1 Presence of aortocoronary bypass graft; Z79.82 Long term (current) use of aspirin; Z79.899 Other long term (current) drug therapy; Z99.81 Dependence on supplemental oxygen; Z87.440 Personal history of urinary (tract) infections; I25.2 Old myocardial infarction